=== PATIENT | female | born 1945 | race Caucasian/White ===

== ENCOUNTER 2019-06-09 14:41 | Outpatient (CLI) | payer MEDICARE, MEDICAID, SELFPAY ==
[2019-06-09 15:30] LABS: Basophils % 0.3 %; Eosinophils # 0.1 10^3/uL (0.0-0.8); Hematocrit 40.1 % (37.0-47.0); Hemoglobin 13.1 g/dL (11.5-15.3); Lymphocytes # 3.7 10^3/uL (0.8-4.8); Lymphocytes % 37.5 %; Mean Corpuscular HGB Conc 32.7 g/dL (30.0-36.0); Mean Corpuscular Hemoglobin 31.7 pg (28.0-34.0); Mean Corpuscular Volume 97.1 fL (81-99); Mean Platelet Volume 10.3 fL (7.4-10.4); Monocytes # 0.9 10^3/uL (0.2-0.9); Monocytes % 8.7 %; Neutrophils # 5.2 10^3/uL (1.8-7.7); Neutrophils % 52.4 %; Nucleated Red Blood Cells % 0 %; Platelet Count 236 10^3/cmm (130-400); Red Blood Count 4.13 10^6/uL (4.1-5.3); Red Cell Distribution Width 12.3 % (12.1-15.1); White Blood Count 9.8 10^3/uL (4.0-10.0)
[2019-06-09 15:53] LABS: Creatinine Urine, Random 294 mg/dL (28-217); Microalbum Creatinine Ratio Ur 10 mg/dL (0-20); Microalbumin Random Urine 3 ug/dL (0-20)
[2019-06-09 16:45] LABS: Calcium 11.1 mg/dL (8.5-10.5); Parathyroid Hormone 34.3 pg/mL (15-65)
[2019-06-09 22:30] LABS: Albumin Level 4.4 g/dL (3.5-5.2); Anion Gap 16.5 (5-19); Blood Urea Nitrogen 17 mg/dL (8-23); Calcium 11.2 mg/dL (8.5-10.5); Carbon Dioxide 28 mmol/L (22-29); Chloride 102 mmol/L (98-107); Chol HDL Ratio 4.32 mg/dL (0.0-4.40); Cholesterol 177 mg/dL (0-200); Glucose 91 mg/dL (65-115); HDL Cholesterol 41 mg/dL (60-100); LDL Cholesterol Calculated 90 mg/dL (50-129); Phosphorus 3.9 mg/dL (2.5-4.5); Potassium 4.5 mmol/L (3.5-5.1); Sodium 142 mmol/L (136-145); Triglycerides 229 mg/dL (0-150)
== END 2019-06-09 14:42 | disposition home or self-care (01) ==
LOC: LAB 14:51
PROVIDERS: Family Provider Physician Assistant Medical; PCP Nurse Practitioner Family; Visit Provider Internal Medicine Nephrology
DX: N18.3 Chronic kidney disease, stage 3 (moderate) (principal)
CPT/HCPCS: 36415; 80061; 80069; 82044; 82310; 83970; 85025

== ENCOUNTER 2019-07-02 14:56 | Outpatient (CLI) | payer MEDICARE, MEDICAID, SELFPAY ==
[2019-07-02 15:38] LABS: Anion Gap 15.9 (5-19); Blood Urea Nitrogen 14 mg/dL (8-23); Calcium 10.5 mg/dL (8.5-10.5); Carbon Dioxide 29 mmol/L (22-29); Chloride 101 mmol/L (98-107); Glucose 116 mg/dL (65-115); Osmolality Calculated 291 mOsm/kg (285-295); Potassium 3.9 mmol/L (3.5-5.1); Sodium 142 mmol/L (136-145)
[2019-07-08 20:26] LABS: PTH Related Peptide (Protein) 15 pg/mL (14-27)
== END 2019-07-02 14:57 | disposition home or self-care (01) ==
LOC: LAB 15:02
PROVIDERS: Family Provider Physician Assistant Medical; PCP Nurse Practitioner Family; Visit Provider Internal Medicine Nephrology
DX: E83.52 Hypercalcemia (principal)
CPT/HCPCS: 36415; 80048; 82542

== ENCOUNTER → 2022-07-11 11:42 | Outpatient (BNVA) | payer MEDICARE, MEDICAID, SELFPAY | PROVIDERS: Family Provider Physician Assistant Medical; Visit Provider Registered Nurse | DX: N18.32 Chronic kidney disease, stage 3b (principal) | CPT/HCPCS: 80048; 82043 ==

== ENCOUNTER 2024-06-02 06:00 | Outpatient (RCR) | payer MEDICARE, MEDICAID, SELFPAY | END 2024-06-27 23:59 | disposition home or self-care (01) | LOC: APT 06:00 | PROVIDERS: Visit Provider Nurse Practitioner Family | DX: I50.9 Heart failure, unspecified (principal) | CPT/HCPCS: 97110; 97163 ==

== ENCOUNTER 2024-06-28 06:00 | Outpatient (RCR) | payer MEDICARE, MEDICAID, SELFPAY | END 2024-07-28 23:59 | disposition home or self-care (01) | LOC: APT 06:00 | PROVIDERS: Visit Provider Nurse Practitioner Family | DX: I50.9 Heart failure, unspecified (principal) | CPT/HCPCS: 97110 ==

== ENCOUNTER 2024-07-29 06:00 | Outpatient (RCR) | payer MEDICARE, MEDICAID, SELFPAY | END 2024-08-27 23:59 | disposition home or self-care (01) | LOC: APT 06:00 | PROVIDERS: Visit Provider Nurse Practitioner Family | DX: I50.9 Heart failure, unspecified (principal) | CPT/HCPCS: 97110; 97112; 97530 ==

== ENCOUNTER 2024-08-28 05:00 | Outpatient (RCR) | payer MEDICARE, MEDICAID, SELFPAY | END 2024-09-27 23:59 | disposition home or self-care (01) | LOC: APT 05:00 | PROVIDERS: Visit Provider Nurse Practitioner Family | DX: I50.9 Heart failure, unspecified (principal) | CPT/HCPCS: 97110; 97530 ==

== ENCOUNTER 2024-11-21 10:16 | Outpatient (CLI) | payer MEDICARE, MEDICAID, SELFPAY ==
--- NOTE | 2024-11-21 10:25 | PETR_ITS ---
PROCEDURE INFORMATION: Exam: PET/CT Skull Base to Mid-thigh Exam date and time: 11/21/2024 11:36 AM Age: 79 years old Clinical indication: Condition or disease; Condition/disease: Lower lobe pulmonary nodule; Additional info: Abnormal imaging LABS AND CLINICAL REPORTS: Glucose: 99 mg/dl Treatment strategy for malignancy (PET staging): Initial Staging (PI) TECHNIQUE: Imaging protocol: Following at least four-hour fasting and following the injection of radiopharmaceutical, low dose CT images were obtained. Then, PET images were obtained. Attenuation corrected images were constructed using the CT scan. Fused images of PET and CT were reviewed. The standardized uptake values (SUV) reported below are maximum values within a region of interest, expressed in gm/ml. Exam includes orbital meatal line to mid-thigh. SUV normalization method: BodyWeight Radiopharmaceutical: 12.17 mCi F-18 FDG (Fluorodeoxyglucose), IV. Time of imaging post radiopharmaceutical administration: 47 minutes Injection site: LEFT AC COMPARISON: CR XR ribs LT mn 3V w CXR1V [id number] 01/16/2022 3:53 PM FINDINGS: Brain: On the nondedicated limited brain images there is no abnormal distribution of the radiotracer in the bowers and white matter. Pharynx: Normal distribution of the radiotracer in nasopharyngeal, and oropharyngeal structures. Larynx: Normal distribution of the radiotracer in laryngeal structures. Lungs, pleura and trachea: 8 mm left lower lobe nodule with uptake of 14.2 SUV is suggestive of malignancy. 5 x 3 mm left lower lobe nodule on series 202, image 108 with no abnormal uptake is likely benign. There is mild centrilobular emphysema most prominent in the upper lungs. No pleural effusion. Heart: Normal physiologic uptake. There is no cardiomegaly. Coronary artery calcification is present. There is no pericardial effusion. Mediastinal space: No abnormal uptake. Liver: Normal size without abnormal radiotracer uptake. Gallbladder and biliary ducts: No abnormal uptake. Pancreas: Normal distribution of radiotracer. Spleen: Normal size without abnormal radiotracer uptake. Adrenal glands: No abnormal uptake. Kidneys and ureters: Normal physiologic uptake. No hydronephrosis. A couple of simple cysts in the right kidney measuring up to 2 cm. Stomach and bowel: Long segment of increased uptake in the right and transverse colon with no corresponding CT abnormality is likely benign. There is diverticulosis of the sigmoid colon. Vasculature: No abnormal uptake. Descending thoracic aorta is dilated to 3.7 cm. No abnormal dilatation of the abdominal aorta. Lymph nodes: No abnormal uptake. No lymphadenopathy in the head, neck, chest, abdomen, pelvis, and extremities. Skeleton: No abnormal uptake in the visualized axial and appendicular skeleton. Soft tissues: Linear uptake extending from the left antecubital fossa toward the left axilla represents lymphatic drainage of extravasated FDG at the junction site. Increased muscular uptake in the scalene muscles more prominent on the left side is compatible with benign finding. PET/PET skull to thigh INIT [id number] IMPRESSION: 8 mm left lower lobe lung nodule with intense uptake of 14.2 SUV is suggestive of malignancy. No FDG avid lymph nodes in the chest. No evidence of distant FDG avid metastatic disease.
== END 2024-11-21 10:17 | disposition home or self-care (01) ==
LOC: RAD 10:16
PROVIDERS: Visit Provider Nurse Practitioner Family
DX: R91.1 Solitary pulmonary nodule (principal); J43.1 Panlobular emphysema
CPT/HCPCS: 78815; A9552

== ENCOUNTER 2025-03-22 00:11 | Emergency (ER) | payer MEDICARE, MEDICAID, SELFPAY ==
--- OUTSIDE RECORDS SUMMARY | 2025-03-19 13:20 | XMS_ITS | Encounter Summary ---
Author Organization [facility] Address [address] [place] [address] Care Team Providers Care Feather Separator Name Role Phone Gary Guardado MD Primary Care Provider [phone] [phone] Reason for Visit * Reason Onset Date Comments Hip Pain Right side for a bout a month Leg Pain Right side for a bout a month Yearly Medicare Exam Annual Wellness Visit (Medicare) 03/19/2025 Yearly Medicare Exam 03/19/2025 Encounter Details Date Type Department Care Team (Late st Contact Info) Description 03/19/2025 1:20 PM INDIRECT SALES REPRESENTATIVE Office Visit [facility] Family Medicine [address] [phone] Melani Freedman FNP [address] [place] [phone] Chronic congestive heart failure, unspecified heart failure type (CMS/HCC) (Primary Dx); Sciatica of right side; Chronic obstructive pulmonary disease, unspecified COPD type (CMS/HCC) Social History Tobacco Use Types Packs/Day Years Used Date Smoking Tobacco: Every Day Cigarettes 2 65.1 Started: 01/30/1960 Smokeless Tobacco: Never Tobacco Cessation:Ready to Q uit: No; Counseling Given: Yes Alcohol Use Standard Drinks/Week Comments No 0 (1 standard drink = 0.6 oz pur e alcohol) Financial Resource Strain Answer Date R ecorded How hard is it for you to pa y for the very basics like food, housing, medical care, and heating? Not hard at all 04/20/2022 Food Insecurity Answer Date Recorded In the past 12 months, have you worried that your food would run out before you had money to buy more? Never true 04/20/2022 In the past 12 months, did y ou run out of food and didn't have money to buy more? Never true 04/20/2022 Transportation Needs Answer Date Record ed In the past 12 months, has l ack of transportation kept you from medical appointments or from getting medications? No 04/20/2022 Lack of Transportation (Non-Medical) Not on file 04/20/2022 Feeling Safe Answer Date Recorded Are you in a relationship wi th someone who hurts you emotionally and/or physically? No 12/31/2024 Food Insecurity Answer Date Recorded Patient needs follow up regardin 08/20/2024 Transportation Needs Answer Date Record ed Patient needs follow up regardin 08/20/2024 Housing Stability Answer Date Recorded Social/Environmental Concerns No concerns Utility Needs Answer Date Recorded Patient needs follow up regardin 08/20/2024 Education Answer Date Recorded What is the highest level of school you have completed or the highest degree you have received? 6th grade 01/28/2024 Comments No Sex and Gender Information Value Date Recorded Sex Assigned at Not on file Legal Sex Female 2:49 PM INDIRECT SALES REPRESENTATIVE Gender Identity Not on file Sexual Orientation Not on file documented as of this encounter Last Filed Vital Signs Vital Sign Reading Time Taken Comments Blood Pressure 128/68 03/19/2025 1:31 PM INDIRECT SALES REPRESENTATIVE Pulse 69 03/19/2025 1:31 PM INDIRECT SALES REPRESENTATIVE Temperature 36.8 C (98.2 F) 03/19/2025 1:31 PM INDIRECT SALES REPRESENTATIVE Respiratory Rate 20 03/19/2025 1:31 PM INDIRECT SALES REPRESENTATIVE Oxygen Saturation 98% 03/19/2025 1:31 PM INDIRECT SALES REPRESENTATIVE Inhaled Oxygen Concentration - - Weight 63.1 kg (139 lb 3.2 oz) 03/19/2025 1:31 P M INDIRECT SALES REPRESENTATIVE Height 149.9 cm (4' 11 ) 03/19/2025 1:31 PM INDIRECT SALES REPRESENTATIVE Body Mass Index 28.11 03/19/2025 1:31 PM INDIRECT SALES REPRESENTATIVE documented in this encounter Miscellaneous Notes * Patient Instructions - Bhupendra Main LPN - 03/19/2025 1:32 PM INDIRECT SALES REPRESENTATIVE Preventive Care Recommendations for AVERAGE Risk Adult Females > 65yo Measure USPSTF Recommendation Breast cancer screening (mammogram) Every 1 to 2 years for women >40 Osteoporosis Screening (bone density) Women >65 Colon Cancer Screening Colonoscopy every 10 yrs or Fecal Occult Blood testing yearly ages 45-75 Lung Cancer Screening Annual low-dose CT, adults 50 - 80* w/ >20 pack-year smoking hx who currently smoke or have quit w/in 15 yrs (*Medicare will not cover for >77 yo) Lipid Screening Identification of dyslipidemia and calculation of 10-year CVD event risk requires universal lipid screening in adults ages 40 - 75 Pre-diabetes/Diabetes Screening Adults 35-70 who are overweight or obese Hepatitis C Screening Adults 18-79 Immunizations COVID-19 Influenza Pneumococcal RSV Tdap/Td Zoster (Shingles) RECT SALES REPRESENTATIVE documented in this encounter Plan of Treatment Upcoming Encounters Date Type Department Care Team (Late st Contact Info) Description 07/23/2025 2:00 PM CDT Office Visit [address] [phone] Gary Guardado MD [address] [phone] documented as of this encounter Visit Diagnoses Diagnosis Chronic congestive heart failure, unspecified heart failure type (CMS/HCC)- Primary Sciatica of right side Sciatica Chronic obstructive pulmonary disease, unspecified COPD type (CMS/HCC) documented in this encounter Administered Medications Inactive Administered Medications - up to 3 most recent administrations Medication Order MAR Action Action Date Dose Rate Site dexAMETHasone (DECADRON) injection 4 mg 4 mg, IM, ONE TIME ONLY, 1 dose, On Mckenzie 03/19/25 at 1415, RoutineIndications:Sciat ica of right side Given 03/19/2025 2:31 PM INDIRECT SALES REPRESENTATIVE 4 mg Ventrogluteal, Right methylPREDNISolone acetate (DEPO-Medrol) injection 40 mg 40 mg, IM, ONE TIME ONLY, 1 dose, On Mckenzie 03/19/25 at 1415, RoutineIndications:Sciat ica of right side Given 03/19/2025 2:31 PM INDIRECT SALES REPRESENTATIVE 40 mg Ventrogluteal, Right documented in this encounter Care Teams Feather Separator Relationship Specialty Start Date End Date Gary Guardado MD [address] [phone] PCP - General Family Practice 12/26/16 documented as of this encounter
[2025-03-22 00:15] VITALS: BP 158/77; PULSE 55; RESP 17; O2SAT 95
--- OUTSIDE RECORDS SUMMARY | 2025-03-22 00:16 | XMS_ITS | Encounter Summary ---
Author Organization 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) Social History Tobacco Use Types Packs/Day Years Used Date Smoking Tobacco: Never Assessed Comments Unknown Sex and Gender Information Value Date Recorded Sex Assigned at Not on file Legal Sex Female 4:26 AM PLYWOOD MATCHER Gender Identity Not on file Sexual Orientation Not on file documented as of this encounter Plan of Treatment Not on file documented as of this encounter Visit Diagnoses Diagnosis Occlusion and stenosis of multiple and bilateral precerebral arteries without mention of cerebral infarction- Primary documented in this encounter Additional Health Concerns Infection Onset Date Last Indicated Resolved Time R/O COVID-19 08/18/2020 08/18/2020 08/18/2020 5:52 PM CDT documented as of this encounter Care Teams Planisher Relationship Specialty Start Date End Date Gary Guardado MD [address] [phone] PCP - General Family Practice 12/26/16 documented as of this encounter
--- OUTSIDE RECORDS SUMMARY | 2025-03-22 00:16 | XMS_ITS | Encounter Summary ---
Author Organization [facility] Address [address] [place] [address] Care Team Providers Care Manager Alliance Name Role Phone Gary Guardado MD Primary Care Provider [phone] [phone] Encounter Details Date Type Department Care Team (Latest Contact Info) Description 01/07/[address] [facility] [address] [place] [address] Francy Wade MD NO ADDRESS ON FILE Contusion Abdominal Wall (Primary Dx); Esophageal Reflux Social History Tobacco Use Types Packs/Day Years Used Date Smoking Tobacco: Never Assessed Comments Unknown Sex and Gender Information Value Date Recorded Sex Assigned at Not on file Legal Sex Female 4:26 AM BALE COVERER Gender Identity Not on file Sexual Orientation Not on file documented as of this encounter Plan of Treatment Not on file documented as of this encounter Visit Diagnoses Diagnosis Contusion abdominal wall- Primary Contusion of abdominal wall Esophageal reflux documented in this encounter Additional Health Concerns Infection Onset Date Last Indicated Resolved Time R/O COVID-19 08/18/2020 08/18/2020 08/18/2020 5:52 PM CDT documented as of this encounter Care Teams Manager Alliance Relationship Specialty Start Date End Date Gary Guardado MD [address] [facility] [address] [place] [phone] PCP - General Family Practice 12/26/16 documented as of this encounter
--- OUTSIDE RECORDS SUMMARY | 2025-03-22 00:16 | XMS_ITS | Encounter Summary ---
Author Organization [facility] Address [address] [place] [address] Care Team Providers Care Jewelry Estimator Name Role Phone Gary Guardado MD Primary Care Provider +1 [phone] Encounter Details Date Type Department Care Team (Latest Contact Info) Description 05/26/2003 Outpatient Historical [facility] [address] [place] [phone] Skinny Inman MD NO ADDRESS ON FILE CHEST PAIN NOS (Primary Dx) Social History Tobacco Use Types Packs/Day Years Used Date Smoking Tobacco: Never Assessed Comments Unknown Sex and Gender Information Value Date Recorded Sex Assigned at Not on file Legal Sex Female 4:26 AM FUNDRAISING DIRECTOR Gender Identity Not on file Sexual Orientation Not on file documented as of this encounter Plan of Treatment Not on file documented as of this encounter Visit Diagnoses Diagnosis Chest pain, unspecified- Primary documented in this encounter Additional Health Concerns Infection Onset Date Last Indicated Resolved Time R/O COVID-19 08/18/2020 08/18/2020 08/18/2020 5:52 PM CDT documented as of this encounter Care Teams Jewelry Estimator Relationship Specialty Start Date End Date Gary Guardado MD [address] [facility] [address] [place] [phone] PCP - General Family Practice 12/26/16 documented as of this encounter
--- OUTSIDE RECORDS SUMMARY | 2025-03-22 00:16 | XMS_ITS | Encounter Summary ---
Author Organization [facility] Address [address] [place] [address] Care Team Providers Care Asp Net Software Developer Name Role Phone Gary Guardado MD Primary Care Provider [phone] [phone] Encounter Details Date Type Department Care Team (Latest Contact Info) Description 06/02/2005 Outpatient Historical [facility] Family Medicine- [address] [place] [address] Francy Wade MD NO ADDRESS ON FILE ALLERGIC RHINITIS NOS (Primary Dx) Social History Tobacco Use Types Packs/Day Years Used Date Smoking Tobacco: Never Assessed Comments Unknown Sex and Gender Information Value Date Recorded Sex Assigned at Not on file Legal Sex Female 4:26 AM MEN'S 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 Gender Identity Not on file Sexual Orientation Not on file documented as of this encounter Plan of Treatment Not on file documented as of this encounter Visit Diagnoses Diagnosis Allergic rhinitis, cause unspecified- Primary documented in this encounter Additional Health Concerns Infection Onset Date Last Indicated Resolved Time R/O COVID-19 08/18/2020 08/18/2020 08/18/2020 5:52 PM CDT documented as of this encounter Care Teams Asp Net Software Developer Relationship Specialty Start Date End Date Gary Guardado MD [address] [phone] PCP - General Family Practice 12/26/16 documented as of this encounter
--- OUTSIDE RECORDS SUMMARY | 2025-03-22 00:16 | XMS_ITS | Encounter Summary ---
Author Organization [facility] Address [address] [place] [address] Care Team Providers Care Insulation Applicator Name Role Phone Gary Guardado MD Primary Care Provider [phone] [phone] Encounter Details Date Type Department Care Team (Latest Contact Info) Description 02/26/2002 Outpatient Historical [facility] Family Medicine [address] [phone] Francy Wade MD NO ADDRESS ON FILE ANXIETY STATE NOS (Primary Dx) Social History Tobacco Use Types Packs/Day Years Used Date Smoking Tobacco: Never Assessed Comments Unknown Sex and Gender Information Value Date Recorded Sex Assigned at Not on file Legal Sex Female 4:26 AM BARTENDERS Gender Identity Not on file Sexual Orientation Not on file documented as of this encounter Plan of Treatment Not on file documented as of this encounter Visit Diagnoses Diagnosis Anxiety state, unspecified- Primary documented in this encounter Additional Health Concerns Infection Onset Date Last Indicated Resolved Time R/O COVID-19 08/18/2020 08/18/2020 08/18/2020 5:52 PM CDT documented as of this encounter Care Teams Insulation Applicator Relationship Specialty Start Date End Date Gary Guardado MD [address] [phone] PCP - General Family Practice 12/26/16 documented as of this encounter
--- OUTSIDE RECORDS SUMMARY | 2025-03-22 00:16 | XMS_ITS | Clinical Summary ---
Author Organization [facility] Address [address] [place] [address] Care Team Providers Care Religion Teacher Name Role Phone Gary Guardado MD Primary Care Provider [phone] Allergies Active Allergy Reactions Criticality Noted Date Comments Cephalexin Rash,Itching Low 11/02/2014 Minocycline Rash Medium 02/07/2008 Nirmatrelvir-Ritonavir Other (See Comments) Caused tongue to become red and very sore with 1 dose Penicillins Rash Low 02/07/2008 Medications multivit-min/ir on/folic/lutein (CENTRUM SILVER WOMEN ORAL) Take by mouth daily. 04/11/20 18 Active overnight pulse oximetryIndicat ions:Panlobular emphysema (CMS/HCC) Overnight pulse oximetry: One time overnight pulse oximetry test on room air 1 Each 0 07/10/19 21 Active multivitamin (DAILY-MELANIA) tablet Take 1 Tablet by mouth daily. 10/23/19 21 Active ibuprofen (MOTRIN) 200 mg tablet Take 200 mg by mouth every 6 hours as needed for Pain, Mild. Active walker with wheels and seatIndications :Panlobular emphysema (CMS/HCC),Conge stive heart failure, unspecified HF chronicity, unspecified heart failure type (CMS/HCC),PAD (peripheral artery disease),Supple mental oxygen dependent,Histo ry of fall Face to Face completed within 6 months: yesLength of Need: 99 months. 1 Each 0 08/23/19 18 Active bumetanide (BUMEX) 0.5 mg tablet Take 0.5 mg by mouth daily. Active ipratropium-alb uteroL (DUONEB) 0.5 mg-3 mg(2.5 mg base)/3 mL Solution for NebulizationInd ications:Panlob ular emphysema (CMS/HCC) Take 3 mL by inhalation every 6 hours as needed for Shortness of Breath or Wheezing. 180 mL 2 02/05/20 24 Active clopidogreL (PLAVIX) 75 mg Tablet TAKE ONE TABLET BY MOUTH DAILY 100 Tablet 3 04/07/20 24 Active aspirin (HAYLEY CHEWABLE) 81 mg Tablet, Chewable Take 81 mg by mouth daily. Active ondansetron (ZOFRAN ODT) 4 mg Tablet, Rapid DissolveIndicat ions:Nausea and vomiting, unspecified vomiting type Take 1 Tablet (4 mg) by mouth every 8 hours as needed for Nausea/Emesis. Dissolve tablet on top of tongue, then swallow with saliva. 90 Tablet 1 04/24/20 24 Active ketoconazole (NIZORAL) 2 % CreamIndication s:Rash APPLY TO THE AFFECTED AREA(S) DAILY 60 Gram 1 07/11/19 25 Active triamcinolone acetonide (KENALOG) 0.1 % OintmentIndicat ions:Eczema of left external ear Apply to affected area 2 times daily. Apply small amount to entrance of left ear canal for itching 30 Gram 1 07/19/19 25 Active lovastatin (MEVACOR) 20 mg tabletIndicatio ns:Mixed hyperlipidemia, Chronic diastolic congestive heart failure (CMS/HCC) Take 1 Tablet (20 mg) by mouth daily with supper. 100 Tablet 3 07/19/19 25 Active montelukast (SINGULAIR) 10 mg tablet TAKE ONE TABLET BY MOUTH EVERY DAY AT BEDTIME 100 Tablet 3 08/08/19 25 Active docusate sodium (COLACE) 100 mg capsuleIndicati ons:Constipatio n, unspecified constipation type TAKE ONE CAPSULE BY MOUTH TWICE DAILY 200 Capsule 3 09/04/19 25 Active guaiFENesin (Mucinex) Tablet Extended Release 12hr Take 1,200 mg by mouth daily. Active vit C-vit E-aoerdj-ektx OXIDE-lutein (PRESERVISION) 226-90-0.8-5 mg Capsule Take 1 Capsule by mouth 2 times daily. Active cetirizine (ZyrTEC) 10 mg tablet TAKE ONE TABLET BY MOUTH DAILY 100 Tablet 3 11/13/19 25 Active potassium CHLORIDE (K-DUR,KLOR-CON M20) 20 mEq Extended Release tablet Take 1 Tablet (20 mEq) by mouth daily. 90 Tablet 3 11/22/19 25 Active fluticasone furoate-vilante roL (Breo Ellipta) 200-25 mcg/dose Disk with Device INHALE 1 PUFF INTO LUNGS DAILY 60 Each 2 11/28/19 25 Active citalopram (CeleXA) 20 mg tabletIndicatio ns:Recurrent major depressive disorder, in partial remission TAKE ONE TABLET BY MOUTH EVERY DAY AT BEDTIME 100 Tablet 2 12/17/19 25 Active isosorbide mononitrate (IMDUR) 30 mg Extended Release 24 hour tabletIndicatio ns:Chronic congestive heart failure, unspecified heart failure type (CMS/HCC) TAKE ONE TABLET BY MOUTH EVERY DAY, EARLY IN THE MORNING 100 Tablet 2 12/17/19 25 Active albuterol sulfate HFA 90 mcg/actuation aerosol inhaler Take 2 Puffs by inhalation every 4 hours as needed for Shortness of Breath. 8.5 Gram 3 12/21/19 25 Active clonazePAM (KlonoPIN) 0.5 mg TabletIndicatio ns:Orthostatic tremor,NORMA (generalized anxiety disorder) TAKE ONE TABLET BY MOUTH DAILY AT BEDTIME 30 Tablet 5 01/07/20 25 Active oxygen home deliveryIndicat ions:Panlobular emphysema (CMS/HCC) Home Oxygen Concentrator yes at 2 L/M Rest, 2 L/M Activity, 2 L/M Sleep, Delivery Device: Nasal Cannula Portability: yes, Inogen May provide device best for patient needs(E system,home fill, conserving device) Length of Need: 99 months 1 Each 01/20/20 25 Active metoprolol tartrate (LOPRESSOR) 25 mg tabletIndicatio ns:Essential hypertension,Ch ronic congestive heart failure, unspecified heart failure type (CMS/HCC) Take 0.5 Tablets (12.5 mg) by mouth 2 times daily. Dose decrease 100 Tablet 3 01/23/20 25 Active latanoprost (XALATAN) 0.005 % solution ADMINISTER ONE DROP IN BOTH EYES DAILY AT BEDTIME 2.5 mL 1 02/05/20 Active pantoprazole (PROTONIX) 40 mg Tablet, Delayed Release (E.C.) TAKE ONE TABLET BY MOUTH DAILY 100 Tablet 2 03/18/20 Active acetaminophen (TYLENOL) 325 mg tablet Take 325 mg by mouth every 6 hours as needed for Pain. Active dapagliflozin propanediol (FARXIGA) 5 mg TabletIndicatio ns:Chronic congestive heart failure, unspecified heart failure type (CMS/HCC) Take 1 Tablet (5 mg) by mouth daily. 100 Tablet 1 03/19/20 25 Active doxycycline hyclate (VIBRAMYCIN) 100 mg tabletIndicatio ns:Chronic obstructive pulmonary disease, unspecified COPD type (CMS/HCC) Take 1 Tablet (100 mg) by mouth 2 times daily. For 5 days - follow COPD Rescue Kit instructions 10 Tablet 1 03/19/20 25 Active predniSONE (DELTASONE) 20 mg tabletIndicatio ns:Chronic obstructive pulmonary disease, unspecified COPD type (CMS/HCC) Take 2 Tablets (40 mg) by mouth daily with breakfast. For 5 days - follow COPD Rescue Kit instructions 10 Tablet 3 03/19/20 Active pantoprazole (Protonix) 40 mg Tablet, Delayed Release (E.C.) Take 1 Tablet (40 mg) by mouth daily. 90 Tablet 1 10/22/192024 Discontinued Hospital, Clinic, or Other Facility Administered Medication Ordered Dose Route Frequency Start Date End Date Status dexAMETHasone (DECADRON) injection 4 mgIndications:Sciatica of right side 4 mg IM ONE TIME ONLY 03/19/2025 03/19/2025 Ended methylPREDNISolone acetate (DEPO-Medrol) injection 40 mgIndications:Sciatica of right side 40 mg IM ONE TIME ONLY 03/19/2025 03/19/2025 Ended Active Problems Problem Noted Date Diagnosed Date Left lower lobe pulmonary nodule 12/20/2024 Current every day smoker 12/20/2024 Cervical myelopathy 07/02/2023 Chronic respiratory failure 07/02/2023 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 Congestive heart failure 07/13/2021 Orthostatic tremor 05/27/2020 Cervical spondylosis with myelopathy 05/27/2020 Hypercalcemia 06/05/2018 On home oxygen therapy 08/22/2017 Asymptomatic bilateral carotid artery stenosis 1 Tobacco use 02/02/2015 Stage 3b chronic kidney disease 11/29/2012 PAD (peripheral artery disease) 07/09/2012 Intertrigo 02/25/2011 GERD (gastroesophageal reflux disease) 1 Sinus bradycardia 03/04/2010 History of CVA (cerebrovascular accident) 2009 Personal history of carotid stenosis 06/14/2009 Hyperlipidemia 05/22/2008 NORMA (generalized anxiety disorder) 05/22/2008 COPD (chronic obstructive pulmonary disease) Essential hypertension 02/07/2008 Chronic diastolic congestive heart failure Resolved Problems Problem Noted Date Diagnosed Date Resolved Date Pneumonia of both lungs due to infectious organism 01/28/2024 07/18/2024 Facial trauma, initial encounter 01/25/2022 07/18/2024 Closed fracture of right luba e of maxilla with routine healing 01/25/2022 07/18/2024 Closed fracture of right orb ital floor with routine healing 01/25/2022 07/18/2024 Chest pain 03/04/2010 11/16/2013 Vertigo 11/12/2009 10/21/2014 Encounters Date Type Department Care Team Description 03/19/2025 1:20 PM HEAD SCORER Office Visit [facility] [address] [place] [address] [place] [address] Melani Freedman FNP Chronic congestive heart failure, unspecified heart failure type (CMS/HCC) (Primary Dx); Sciatica of right side; Chronic obstructive pulmonary disease, unspecified COPD type (CMS/HCC) 03/18/[address] [phone] Gary Guardado MD 03/05/2025 Abstract [facility] [address] [place] [address] [place] [address] Provider, Abstract 03/04/2025 Abstract [facility] [address] [place] [address] [place] [address] Provider, Abstract 02/04/[address] [place] [phone] Gary Guardado MD Provider Call 02/04/[address] [phone] Gary Guardado MD 01/22/2025 2:00 PM CDT Office Visit [address] [phone] Gary Guardado MD Chronic congestive heart failure, unspecified heart failure type ([facility]/HCC) (Primary Dx); Essential hypertension 01/19/2025 Orders Only [facility] [address] [place] [address] [place] [phone] Melani Freedman FNP Panlobular emphysema ([facility]/HCC) 01/09/2025 Orders Only [facility] [address] [place] [address] [place] [phone] Melani Freedman FNP 01/08/2025 Orders Only [facility] [address] [place] [address] [place] [address] Melani Freedman FNP 01/07/[address] [phone] Gary Guardado MD Provider Call 01/06/2025 External Device Data [facility] ABSTRACTION Provider, Abstract 01/06/2025 Results Follow-Up [facility] [address] [place] [address] Katelyn John NP CYTOLOGY, NON GYNE, PATHOLOGY 01/05/[address] [phone] Gary Guardado MD Orthostatic tremor; NORMA (generalized anxiety disorder) 01/05/2025 Telephone [place] [phone] [facility] [address] [facility] [place] [phone] Melani Freedman FNP New Med Request 01/05/2025 Telephone [facility] [address] [facility] [address] [facility] [place] [phone] Melani Freedman FNP Results 01/01/2025 Telephone [facility] [address] [facility] [address] [place] [phone] Gary Guardado MD Patient Communication 12/31/2024 1:29 PM CDT Anesthesia Event [facility] [address] [place] [phone] Usama Au MD 12/31/2024 11:45 AM CDT - 12/31/2024 1:00 PM CDT Surgery [facility] [address] [place] [phone] Mckenzie Schwartz MD BRONCHOSCOPY 12/31/2024 9:52 AM CDT - 12/31/2024 3:33 PM CDT Hospital Encounter [facility] [address] [place] [phone] Mckenzie Schwartz MD Left lower lobe pulmonary nodule Discharge Disposition: Home or Self Care 12/26/2024 Travel 12/25/2024 Orders Only [facility] [address] [place] [phone] Mckenzie Schwartz MD Left lower lobe pulmonary nodule (Primary Dx); Pre-op testing 12/25/2024 Telephone [facility] [address] [phone] Mckenzie Schwartz MD Procedure 12/20/2024 10:30 AM CDT Video Visit [facility] [address] [place] [phone] Karthikeyan Vanessa MD Multiple pulmonary nodules (Primary Dx); Current every day smoker; Panlobular emphysema (CMS/HCC); On home oxygen therapy from Last 3 Months Family History Medical History Relation Name Comments Diabetes Brother 1 Cancer Father Diabetes Father Unknown Maternal Grandfather Unknown Maternal Grandmother Stroke Mother Diabetes Other uncles Unknown Paternal Grandfather Unknown Paternal Grandmother Breast Cancer Neg Hx Colon Cancer Neg Hx Relation Name Status Comments Brother 1 Alive Brother 2 Father Maternal Grandfather Maternal Grandmother Mother Other Paternal Grandfather Paternal Grandmother Sister Social History Tobacco Use Types Packs/Day Years [...] on file Legal Sex Female 2:49 PM HEAD SCORER Gender Identity Not on file Sexual Orientation Not on file Last Filed Vital Signs Vital Sign Reading Time Taken Comments Blood Pressure 128/68 03/19/2025 1:31 PM HEAD SCORER Pulse 69 03/19/2025 1:31 PM HEAD SCORER Temperature 36.8 C (98.2 F) 03/19/2025 1:31 PM HEAD SCORER Respiratory Rate 20 03/19/2025 1:31 PM HEAD SCORER Oxygen Saturation 98% 03/19/2025 1:31 PM HEAD SCORER Inhaled Oxygen Concentration - - Weight 63.1 kg (139 lb 3.2 oz) 03/19/2025 1:31 P M HEAD SCORER Height 149.9 cm (4' 11 ) 03/19/2025 1:31 PM HEAD SCORER Body Mass Index 28.11 03/19/2025 1:31 PM HEAD SCORER Plan of Treatment Upcoming Encounters Date Type Department Care Team (Late st Contact Info) Description 07/23/2025 2:00 PM CDT Office Visit [address] [phone] Gary Guardado MD [address] [phone] Health Maintenance Due Date Last Done Comments DTAP/TDAP/TD VACCINES (1 - Tdap) 1964 PNEUMOCOCCAL VACCINE 50+ YEA RS (1 of 2 - PCV) 1964 Lung Cancer Screening 08/28/1995 ZOSTER VACCINE (1 of 2) 08/28/1995 RSV VACCINE (60+ or ) (1 - 1-dose 75+ series) 2020 OSTEOPOROSIS SCREENING 06/24/2023 06/24/2018, 2018 Medicare [place] ([place]) Preventative Visit/Annual Wellness Visit 04/30/2024 10/24/2023, 10/24/2022, 04/20/2022, Additional history exists INFLUENZA VACCINE (#1) 2024 , 01/16/2022, 01/05/2021, Additional history exists Colorectal Cancer Screening Discontinued FIT-DNA Q 3 years Discontinued 01/16/2021 COLORECTAL SCREENING Discontinued FIT/FOBT Q 1 year Discontinued Flex Sig/CT Colonography Q 5 years Discontinued Medical Devices Implanted Type Area Residential Director Device Identifier Shelf Expiration Date Model / Serial / Lot Lens Io Bi-Aspheric Softechd+21.25 - [id number] Implanted:Qty: 1 on 11/11/2014 by Gonzalo Manzano MD Eye Right: Eye [employer] 04/13/2018 SOFTECHD+21 .25 / [id number] / Procedures Procedure Name Priority Date/Time Associated Diagnosis Comments TELEMETRY REPORT 01/01/2025 9:26 AM CDT XR CHEST PA OR AP 1 VW Stat 2:44 PM CDT XR FLUORO LESS THAN 1 HOUR Routine 12/31/2024 2:29 PM CDT CYTOLOGY, NON GYNE Pathology 12/31/2024 2: 13 PM CDT Left lower lobe pulmonary nodule PATHOLOGY Pathology 12/31/2024 2:04 PM CDT Left lower lobe pulmonary nodule CA ANES INSERT ENDOTRACHEAL AIRWAY Routine 12/31/2024 1:41 PM CDT CA BRONCHOSCOPY W/CPTR-ASST IMAGE-GUIDED NAVIGATION 12/31/2024 11:45 AM CDT Left lower lobe pulmonary nodule CA BRONCHOSCOPY BRONCHIAL/ENDOBRNCL BX 1+ SITES 12/31/2024 11:45 AM CDT Left lower lobe pulmonary nodule COMPREHENSIVE METABOLIC PANEL Stat 12/31/2024 11:19 AM CDT CBC WITH DIFFERENTIAL Stat 12/31/2024 11:19 AM CDT COLON CANCER SCREEN, STOOL DNA Routine 01/16/2021 1:57 PM CDT Encounter for colorectal cancer screening XR DEXA BONE DENSITY AXIAL 1 OR MORE SITES Routine 06/24/2018 2:33 PM HEAD SCORER Postmenopausal from Last 3 Months or Most Recently Relevant to Health Maintenance Results * TELEMETRY REPORT (01/01/2025 9:26 AM CDT) us Provider Scanning ECG ORDERABLES Final Result * XR CHEST PA OR AP 1 VW (12/31/2024 2:44 PM CDT) Anatomical Region Laterality Modality Chest Computed Radiogr aphy 12/31/2024 2:44 PM CDT Impressions 12/31/2024 3:21 PM CDT IMPRESSION: Please see below. EXAM: XR CHEST PA OR AP 1 VW DATE/TIME OF EXAM: 12/31/2024 2:44 PM REASON FOR STUDY: Post-Operative, Comment: Robotic bronch DIAGNOSIS: Left lower lobe pulmonary nodule COMPARISON: September 03, 2024 TECHNIQUE: A frontal radiograph of the chest was obtained. FINDINGS: New left perihilar opacities. Cardiac silhouette is upper limit of normal. No acute bony abnormality. No pleural effusion or pneumothorax. Aortic atherosclerosis. IMPRESSION: 1. Left perihilar opacities are new from the prior radiograph of August. It is uncertain whether these correspond with the pulmonary nodule seen on the more recent chest CT of October 28, 2024. No evidence of pneumothorax. Narrative Procedure Note Charli Gilbert MD - 12/31/2024 IMPRESSION: Please see below. EXAM: XR CHEST PA OR AP 1 VW DATE/TIME OF EXAM: 12/31/2024 2:44 PM REASON FOR STUDY: Post-Operative, Comment: Robotic bronch DIAGNOSIS: Left lower lobe pulmonary nodule COMPARISON: September 03, 2024 TECHNIQUE: A frontal radiograph of the chest was obtained. FINDINGS: New left perihilar opacities. Cardiac silhouette is upper limit of normal. No acute bony abnormality. No pleural effusion or pneumothorax. Aortic atherosclerosis. IMPRESSION: 1. Left perihilar opacities are new from the prior radiograph of August. It is uncertain whether these correspond with the pulmonary nodule seen on the more recent chest CT of October 28, 2024. No evidence of pneumothorax. Mckenzie Schwartz MD DIAGNOSTIC IMAGING ORDERABLES Fi nal Result * XR FLUORO LESS THAN 1 HOUR (12/31/2024 2:29 PM CDT) Narrative 12/31/2024 2:29 PM CDT Order information only. Exam was auto-finalized. Mckenzie Schwartz MD DIAGNOSTIC IMAGING ORDERABLES Fi nal Result * CYTOLOGY, NON GYNE (12/31/2024 2:13 PM CDT) CASE REPORT Medical Cytology Report Case: [id number] Authorizing Provider: Mckenzie Schwartz MD Collected: 12/31/2024 02:13 PM Ordering Location: [facility] Received: 01/01/2025 07:06 AM Endoscopy Pathologist: Shakira Rhodes MD Specimen: Lung, left lower lobe nodule 10:21 AM CDT [facility] FINAL DIAGNOSIS A. Lung, left lower lobe, BAL, ThinPrep and cell block - No malignant cells identified - Benign bronchial epithelial cells present Shakira Rhodes MD [id number] 10:21 AM CDT [facility] at 1020 CDT GROSS DESCRIPTION A. Left lower lobe nodule fluid - 7.5 ml bloody fluid processed for ThinPrep and cell block A2. 10:21 AM CDT [facility] OPERATIVE PROCEDURE 1: BRONCHOSCOPY 2: BRONCHOSCOPY COMPUTER-ASSISTED/ROBO TIC 10:21 AM CDT [facility] CLINICAL INFORMATION Left lower lobe pulmonary nodule [R91.1] 10:21 AM CDT [facility] COMMENT [employer] voice-activated dictation system may have been used in the creation of this report. Inherent to this system is the possibility of errors in syntax, grammar, punctuation, or other areas that could impact interpretation. If there are interpretive questions about the report, please contact the performing pathologist. Unless gross only is specified in the diagnosis, the microscopic examination substantiates the above cited diagnosis. The performance characteristics of all immunohistochemical stains cited in this report (if any) were determined by the [facility] of [facility] in compliance with CLIA'88 regulations. Some of these tests rely on the use of analyte specific reagents and are subject to specific labeling requirements by the FDA. All controls show appropriate reactivity. This testing was developed by the [facility] of [facility]. It has not been cleared or approved by the FDA. The FDA has determined that such clearance or approval is not necessary. 10:21 AM CDT [facility] BAL SPECIMEN FROM LUNG / Unknown Collection / Unknown 12/31/2024 2:13 PM CDT 01/01/2025 7:06 AM CDT us Mckenzie Schwartz MD PATHOLOGY/CYTOLOGY ORDERABLES Fi nal Result [facility] [id number] [address] [place] [address] * PATHOLOGY (12/31/2024 2:04 PM CDT) CASE REPORT Surgical Pathology Report Case: [id number] Authorizing Provider: Mckenzie Schwartz MD Collected: 12/31/2024 02:04 PM Ordering Location: [facility] Received: 12/31/2024 03:22 PM Endoscopy Pathologist: Usama Ambrosio MD Specimens: A) - Lung, left lower lobe, nodule B) - Lung, left lower lobe, nodule 7:50 AM CDT [facility] FINAL DIAGNOSIS A. Lung, left lower lobe nodule, transbronchial needle aspiration biopsy - blood and rare nest of atypical squamous epithelium - no intact lung tissue present. / B. Lung, left lower lobe nodule, transbronchial biopsy - blood, scant lymphoid tissue, and rare atypical squamous epithelium - no intact lung tissue present. REV:CMM Usama Ambrosio MD [id number] 7:50 AM CDT [facility] at 0749 CDT DIAGNOSIS COMMENT After review of the H&E stained slide(s) immunostains on blocks A1 and B1 confirmed that the small atypical cell nests were positive for AE1/AE3 and p40, consistent with squamous epithelium. They were negative for synaptophysin and TTF-1. These cells are atypical but are not diagnostic of malignancy. 5 7:50 AM CDT [facility] GROSS DESCRIPTION A. Received in a container of formalin labeled Stairs -lung, LLL nodule TB FNA are multiple dark-red soft tissue fragments, 2.8 x 0.7 x 0.2 cm in aggregate. The specimen is submitted entirely in A1. B. Received in a container of formalin labeled Stairs -lung, LLL nodule TB BX are multiple dark-red soft tissue fragments, 1.3 x 0.5 x 0.2 cm in aggregate. The specimen is submitted entirely in B1. Grossed by: Yelena Reynolds MS, ROXY ([facility]) 5 7:50 AM CDT [facility] OPERATIVE PROCEDURE 1: BRONCHOSCOPY 2: BRONCHOSCOPY COMPUTER-ASSISTED/ROBO TIC 5 7:50 AM T [facility] CLINICAL INFORMATION R91.1-Left lower lobe pulmonary nodule 5 7:50 AM T [facility] COMMENT The [employer] voice-activated dictation system may have been used in the creation of this report. Inherent to this system is the possibility of errors in syntax, grammar, punctuation, or other areas that could impact interpretation. If there are interpretive questions about the report, please contact the performing pathologist. Unless gross only is specified in the diagnosis, the microscopic examination substantiates the above cited diagnosis. The performance characteristics of all immunohistochemical stains cited in this report (if any) were determined by the [facility] of [facility] in compliance with CLIA'88 regulations. Some of these tests rely on the use of analyte specific reagents and are subject to specific labeling requirements by the FDA. All controls show appropriate reactivity. This testing was developed by the [facility] of [facility]. It has not been cleared or approved by the FDA. The FDA has determined that such clearance or approval is not necessary. 5 7:50 AM T [facility] Tissue SPECIMEN FROM LUNG / Unknown Collection / Unknown 12/31/2024 2:04 PM CDT 12/31/2024 3:22 PM CDT Tissue specimen (specimen) SPECIMEN FROM LUNG / Unknown 12/31/2024 2:10 PM CDT 12/31/2024 3:22 PM CDT Mckenzie Schwartz MD PATHOLOGY/CYTOLOGY ORDERABLES Fi nal Result [facility] # [id number] [address] [place] [address] * CA ANES INSERT ENDOTRACHEAL AIRWAY (12/31/2024 1:41 PM CDT) Narrative Jason Jean CRNA - 12/31/2024 1:41 PM CDT Jason Jean CRNA 12/31/2024 1:49 PM Airway Date/Time: 12/31/2024 1:41 PM Location: OR Plan: elective intubation Patient Identity Confirmed by: Verbally with patient Airway: not difficult Staffing Performed: Anesthesiologist (/) Authorized by: Usama Au MD Performed by: Jason Jean CRNA Indications and Patient Condition: Indications for Airway Management: Anesthesia Sedation Level: general anesthesia Preoxygenated: yes Patient Position: Sniffing Mask Difficulty Assessment: 1 - vent by mask Plan to extubate at end of case: Yes Final Airway Details: Final Airway Type: Endotracheal airway ETT Cuffed: Yes Cuff Volume (mL): 6 Technique Used for Successful ETT Placement: Direct laryngoscopy Devices/Methods Used in Placement: Intubating stylet Blade Type: curved blade Blade Size: 3 Insertion Site: Oral ETT Size (mm): 8.0 Measured from: Gums ETT to Gums (cm): 19 Tube secured with: Tape Placement Verified by: auscultation, end tidal CO2 and chest rise Cormack-Lehane Classification: Grade IIa - partial view of glottis Number of Attempts at Approach: 2 Ventilation Between Attempts: 2 hand mask Number of Other Approaches Attempted: 1 Additional Procedure Information: atraumatic and dentition unchanged Unsuccessful Attempts: Unsuccessful Airways Attempted: Endotracheal tube Unsuccessful Approaches for ETT: Direct laryngoscopy Blade Type: curved blade Blade Size: 3 Unsuccessful Attempt(s) Cormack Lehane Class: Grade IIa - partial view of glottis Usama Au MD PROCEDURE/MINOR SURGICAL ORDER KEN Final Result * (ABNORMAL) CBC WITH DIFFERENTIAL (12/31/2024 11:19 AM [facility]) WBC 8.3 4.8 - 10.8 K/uL 12/31/2024 11:31 AM [facility] RBC 3.47(L) 4.20 - 5.40 M/uL 12/31/2024 11:31 AM [facility] HEMOGLOBIN 10.8(L) 12.0 - 16.0 g/dL 12/31/2024 11:31 AM [facility] HEMATOCRIT 33.3(L) 36.0 - 46.0 % 12/31/2024 11:31 AM [facility] MCV 96.0 84.0 - 103.0 fL 12/31/2024 11:31 AM [facility] MCH 31.1 27.0 - 34.0 pg 12/31/2024 11:31 AM [facility] MCHC 32.4 30.0 - 35.0 g/dL 12/31/2024 11:31 AM [facility] PLATELETS 183 140 - 440 K/uL 12/31/2024 11:31 AM [facility] MPV 10.6 8.9 - 12.8 fL 12/31/2024 11:31 AM [facility] RDW 13.6 11.0 - 14.5 % 12/31/2024 11:31 AM [facility] RDW-STDEV 48.1 37.0 - 54.0 fL 12/31/2024 11:31 AM [facility] NEUTROPHILS 74 42 - 75 % 12/31/2024 11:31 AM [facility] LYMPHOCYTES 19(L) 24 - 44 % 12/31/2024 11:31 AM [facility] MONOCYTES 6 2 - 10 % 12/31/2024 11:31 AM [facility] EOSINOPHILS 1 0 - 7 % 12/31/2024 11:31 AM CDT [facility] BASOPHILS 0 0 - 1 % 12/31/2024 11:31 AM CDT [facility] IMMATURE GRANULOCYTES 0 0 - 2 % 12/31/2024 11:31 AM CDT [facility] NEUTROPHIL ABSOLUTE 6.09 2.00 - 8.00 K/uL 12/31/2024 11:31 AM CDT [facility] LYMPHOCYTE ABSOLUTE 1.58 1.20 - 4.00 K/uL 12/31/2024 11:31 AM T [facility] MONOCYTE ABSOLUTE 0.48 0.10 - 0.60 K/uL 12/31/2024 11:31 AM CDT [facility] EOSINOPHIL ABSOLUTE 0.08 0.00 - 0.70 K/uL 12/31/2024 11:31 AM T [facility] BASOPHILS ABSOLUTE 0.03 0.00 - 0.20 K/uL 12/31/2024 11:31 AM CDT [facility] IMMATURE GRANULOCYTES ABSOLUTE 0.02 0.00 - 0.10 K/uL 12/31/2024 11:31 AM [facility] SMEAR REVIEWED: NA - Not Applicable 12/31/2024 11:31 AM [facility] Blood Venipuncture / Unknown 12/31/2024 11:19 AM CDT 12/31/2024 11:25 AM CDT us Usama Au MD HEMATOLOGY ORDERABLES Final Re [id number] [address] [place] [address] [place], [place] [id number] * (ABNORMAL) COMPREHENSIVE METABOLIC PANEL (12/31/2024 11:19 AM CDT) SODIUM 142 136 - 145 mmol/L 12/31/2024 11:58 AM T [facility] POTASSIUM 4.3 3.5 - 5.1 mmol/L 12/31/2024 11:58 AM [facility] CHLORIDE 106 98 - 107 mmol/L 12/31/2024 11:58 AM [facility] CO2 24 22 - 29 mmol/L 12/31/2024 11:58 AM [facility] CALCIUM 9.3 8.8 - 10.2 mg/dL 12/31/2024 11:58 AM [facility] BUN 18 8 - 23 mg/dL 12/31/2024 11:58 AM [facility] CREATININE 1.02(H) 0.51 - 0.95 mg/dL 12/31/2024 11:58 AM [facility] Comment:The GFR result is no t clinically significant on patients <18 or >70 years of age. GLUCOSE 105(H) 74 - 99 mg/dL 12/31/2024 11:58 AM [facility] TOTAL PROTEIN 6.5 6.4 - 8.3 g/dL 12/31/2024 11:58 AM [facility] ALBUMIN 4.2 3.5 - 5.2 g/dL 12/31/2024 11:58 AM [facility] BILIRUBIN TOTAL 0.3 0.0 - 1.0 mg/dL 12/31/2024 11:58 AM [facility] ALKALINE PHOSPHATASE 83 35 - 104 U/L 12/31/2024 11:58 AM [facility] AST 14 10 - 35 U/L 12/31/2024 11:58 AM [facility] ALT 10 <=35 U/L 12/31/2024 11:58 AM [facility] GFR 56 mL/min/1. 73 sq meter 12/31/2024 11:58 AM [facility] Comment:eGFR calculated with 2020 CKD-EPI equation. Vegetarian diet, extremely high or low muscle mass, and may affect results. Cystatin C with Glomerular Filtration Rate is a suitable alternative for these patients. ANION GAP 12 9 - 20 mmol/L 12/31/2024 11:58 AM CDT [facility] Blood Venipuncture / Unknown 12/31/2024 11:19 AM CDT 12/31/2024 11:24 AM CDT Usama Au MD CHEMISTRY ORDERABLES Final Res ult [facility] CLIA # [id number] [address] [place] [address] [place] [address] * COLON CANCER SCREEN, STOOL DNA (01/16/2021 1:57 PM CDT) COLOGUARD RESULT Negative Negative [facility] Comment: NEGATIVE TEST RESULT. A negative Cologuard result indicates a low likelihood that a colorectal cancer (CRC) or advanced adenoma (adenomatous polyps with more advanced pre-malignant features) is present. The chance that a person with a negative Cologuard test has a colorectal cancer is less than 1 in 1500 (negative predictive value >99.9%) or has an advanced adenoma is less than 5.3% (negative predictive value 94.7%). These data are based on a prospective cross-sectional study of 10,000 individuals at average risk for colorectal cancer who were screened with both Cologuard and colonoscopy. (Maricruz Arcos al, N Engl J Med 2014;370(14):8418-0508) The normal value (reference range) for this assay is negative. COLOGUARD RE-SCREENING RECOMMENDATION: Periodic colorectal cancer screening is an important part of preventive healthcare for asymptomatic individuals at average risk for colorectal cancer. Following a negative Cologuard result, the [place] [employer] Society and U.S. Multi-Society Task Force screening guidelines recommend a Cologuard re-screening interval of 3 years. References: [place] [employer] Guideline for Colorectal Cancer Screening: https://www.cancer.org/cancer/lzqpu-zfipdz-dvlgyd/tyroftrhe-fdxnbkvql-xyxxtef/ac s-rec ommendations.html.; Dean BRANTLEY, Rylee CR, Darío RicoK, Colorectal Cancer Screening: Recommendations for Physicians and Patients from the U.S. Multi-Society Task Force on Colorectal Cancer Screening , Am J Gastroenterology 2017; 112:6212-5174. TEST DESCRIPTION: Composite algorithmic analysis of stool DNA-biomarkers with hemoglobin immunoassay. Quantitative values of individual biomarkers are not reportable and are not associated with individual biomarker result reference ranges. Cologuard is intended for colorectal cancer screening of adults of either sex, 45 years or older, who are at average-risk for colorectal cancer (CRC). Cologuard has been approved for use by the U.S. FDA. The performance of Cologuard was established in a cross sectional study of average-risk adults aged 50-84. Cologuard performance in patients ages 45 to 49 years was estimated by sub-group analysis of near-age groups. Colonoscopies performed for a positive result may find as the most clinically significant lesion: colorectal cancer [4.0%], advanced adenoma (including sessile serrated polyps greater than or equal to 1cm diameter) [20%] or non- advanced adenoma [31%]; or no colorectal neoplasia [45%]. These estimates are derived from a prospective cross-sectional screening study of 10,000 individuals at average risk for colorectal cancer who were screened with both Cologuard and colonoscopy. (Maricruz Velasquez. et al, N Engl J Med 2014;370(14):8170-0917.) Cologuard may produce a false negative or false positive result (no colorectal cancer or precancerous polyp present at colonoscopy follow up). A negative Cologuard test result does not guarantee the absence of CRC or advanced adenoma (pre-cancer). The current Cologuard screening interval is every 3 years. ([place] [employer] and U.S. Multi-Society Task Force). Cologuard performance data in a 10,000 patient pivotal study using colonoscopy as the reference method can be accessed at the following location: www.[employer].com/results. Additional description of the Cologuard test process, warnings and precautions can be found at www.cologOneTwoSeerd.com. Stool STOOL SPECIMEN / Unknown 01/16/2021 1:57 PM CDT 01/18/2021 10:17 PM CDT us Melani Freedman WIRELESS FIELD TECHNICIAN BODY FLUIDS AND STOOLS Final Res ult [facility] CLIA # [id number] [address] [place] [address] * XR DEXA BONE DENSITY AXIAL 1 OR MORE SITES (06/24/2018 2:33 PM HEAD SCORER) Anatomical Region Laterality Modality Other Impressions 06/24/2018 2:41 PM HEAD SCORER Abnormal examination Low bone density/osteopenia is present in the left proximal femur and lumbar spine lying just below the average patient's age-matched control in the hip consistent with age-appropriate physiologic demineralization. NOF guidelines recommend consideration of FDA-approved medical therapies in patients with FRAX determined 10-year probabilities of hip/major osteoporosis-related fractures equal or greater than 3%/20% respectively. Consider assessing fracture risk using the FRAX analysis tool for guidance of clinical management available online at www.shef.ac.uk/FRAX/. Enter [employer] for Select DXA and the Femoral Neck BMD value. Also consider remeasuring no sooner than two years only as clinically needed. Narrative 06/24/2018 2:41 PM HEAD SCORER DEXA Evaluation of the Lumbar Spine and Left Proximal Femur Reason for Consultation: Ovarian failure. Evaluation of bone mineral density. The following absorptiometry data were obtained. The quality of this examination is acceptable with regards to count density, processed images, data display and lack of important artifacts (including but not limited to motion and attenuation artifacts). Serial examination number one. L1-L4 BMD (g/cm2): 0.898 Adult T-score: -1.4 Adult Z-score: 0.9 Left Femoral Neck BMD (g/cm2): 0.591 Adult T-score: -2.3 Adult Z-score: -0.4 Left Total Hip BMD (g/cm2): 0.852 Adult T-score: -0.7 Adult Z-score: 0.9 Procedure Note Jan Paz MD - 09/20/2020 DEXA Evaluation of the Lumbar Spine and Left Proximal Femur Reason for Consultation: Ovarian failure. Evaluation of bone mineral density. The following absorptiometry data were obtained. The quality of this examination is acceptable with regards to count density, processed images, data display and lack of important artifacts (including but not limited to motion and attenuation artifacts). Serial examination number one. L1-L4 BMD (g/cm2): 0.898 Adult T-score: -1.4 Adult Z-score: 0.9 Left Femoral Neck BMD (g/cm2): 0.591 Adult T-score: -2.3 Adult Z-score: -0.4 Left Total Hip BMD (g/cm2): 0.852 Adult T-score: -0.7 Adult Z-score: 0.9 IMPRESSION Abnormal examination Low bone density/osteopenia is present in the left proximal femur and lumbar spine lying just below the average patient's age-matched control in the hip consistent with age-appropriate physiologic demineralization. NOF guidelines recommend consideration of FDA-approved medical therapies in patients with FRAX determined 10-year probabilities of hip/major osteoporosis-related fractures equal or greater than 3%/20% respectively. Consider assessing fracture risk using the FRAX analysis tool for guidance of clinical management available online at www.shef.ac.uk/FRAX/. Enter [employer] for Select DXA and the Femoral Neck BMD value. Also consider remeasuring no sooner than two years only as clinically needed. Khadar RAMSEY DIAGNOSTIC IMAGING ORDERABLES Final Result from Last 3 Months or Most Recently Relevant to Health Maintenance Insurance DUAL COMPLETE HMO [facility] [id number] Advance Directives For more information, please contact: [phone] * Full Code (Latest Code Status on File) Date Activated Date Inactivated Comments 12/31/2024 11:18 AM 12/31/2024 5:48 PM * Full Code Date Activated Date Inactivated Comments 07/18/2024 1:33 PM 09/03/2024 6:40 PM * Full Code Date Activated Date Inactivated Comments 01/28/2024 7:57 PM 01/31/2024 4:57 PM * Full Code Date Activated Date Inactivated Comments 10/24/2022 2:11 PM 01/08/2023 9:51 AM Care Teams Religion Teacher Relationship Specialty Start Date End Date Gary Guardado MD [address] [phone] PCP - General Family Practice 12/26/16
--- OUTSIDE RECORDS SUMMARY | 2025-03-22 00:16 | XMS_ITS | Encounter Summary ---
Author Organization [facility] Address [address] [place] [address] Care Team Providers Care Odd Shoe Examiner Name Role Phone Gary Guardado MD Primary Care Provider [phone] Encounter Details Date Type Department Care Team (Latest Contact Info) Description 07/07/2004 Outpatient Historical [facility] General and Trauma Surgery-[address] [place] [address] Earle De La Torre MD NO ADDRESS ON FILE CAROTID ART OCCL-NO INFARCT (Primary Dx) Social History Tobacco Use Types Packs/Day Years Used Date Smoking Tobacco: Never Assessed Comments Unknown Sex and Gender Information Value Date Recorded Sex Assigned at Not on file 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 Gender Identity Not on file Sexual Orientation Not on file documented as of this encounter Plan of Treatment Not on file documented as of this encounter Visit Diagnoses Diagnosis Occlusion and stenosis of carotid artery without mention of cerebral infarction- Primary documented in this encounter Additional Health Concerns Infection Onset Date Last Indicated Resolved Time R/O COVID-19 08/18/2020 08/18/2020 08/18/2020 5:52 PM CDT documented as of this encounter Care Teams Odd Shoe Examiner Relationship Specialty Start Date End Date Gary Guardado MD [address] [facility] [address] [place] [phone] PCP - General Family Practice 12/26/16 documented as of this encounter
--- OUTSIDE RECORDS SUMMARY | 2025-03-22 00:16 | XMS_ITS | Encounter Summary ---
Author Organization [facility] Address [address] [place] [address] Care Team Providers Care Cold Rolling Supervisor Name Role Phone Gary Guardado MD Primary Care Provider [phone] Encounter Details Date Type Department Care Team (Latest Contact Info) Description 01/05/2005 Outpatient Historical [facility] Cardiovascular Services [address] [place] [address] Maikel Garcia MD [address] [address] MULT PRECEREBRAL OCCL-NO INFARCT (Primary Dx) Social History Tobacco Use Types Packs/Day Years Used Date Smoking Tobacco: Never Assessed Comments Unknown Sex and Gender Information Value Date Recorded Sex Assigned at Not on file 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
--- OUTSIDE RECORDS SUMMARY | 2025-03-22 00:16 | XMS_ITS | Encounter Summary ---
Author Organization [facility] Address [address] [place] [address] Care Team Providers Care Electrician Rectifier Maintenance Name Role Phone Gary Guardado MD Primary Care Provider [phone] Encounter Details Date Type Department Care Team (Latest Contact Info) Description 09/07/2006 Outpatient Historical [facility] Family Medicine- [address] [place] [address] Renee Titus NP NO ADDRESS ON FILE Acute Pharyngitis (Primary Dx); Contusion of Unspecified Part of Lower Limb Social History Tobacco Use Types Packs/Day Years Used Date Smoking Tobacco: Never Assessed Comments Unknown Sex and Gender Information Value Date Recorded Sex Assigned at Not on file 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 Gender Identity Not on file Sexual Orientation Not on file documented as of this encounter Plan of Treatment Not on file documented as of this encounter Visit Diagnoses Diagnosis Acute pharyngitis- Primary Contusion of unspecified part of lower limb documented in this encounter Additional Health Concerns Infection Onset Date Last Indicated Resolved Time R/O COVID-19 08/18/2020 08/18/2020 08/18/2020 5:52 PM CDT documented as of this encounter Care Teams Electrician Rectifier Maintenance Relationship Specialty Start Date End Date Gary Guardado MD [address] [phone] PCP - General Family Practice 12/26/16 documented as of this encounter
--- OUTSIDE RECORDS SUMMARY | 2025-03-22 00:16 | XMS_ITS | Encounter Summary ---
Author Organization [facility] Address [address] [place] [address] Care Team Providers Care Scada Engineer Name Role Phone Gary Guardado MD Primary Care Provider [phone] Encounter Details Date Type Department Care Team (Latest Contact Info) Description 06/02/2002 Outpatient Historical [facility] Family Medicine- [address] [place] [address] Francy Wade MD NO ADDRESS ON FILE HYPERTENSION NOS (Primary Dx); ANXIETY STATE NOS Social History Tobacco Use Types Packs/Day Years Used Date Smoking Tobacco: Never Assessed Comments Unknown Sex and Gender Information Value Date Recorded Sex Assigned at Not on file 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 Gender Identity Not on file Sexual Orientation Not on file documented as of this encounter Plan of Treatment Not on file documented as of this encounter Visit Diagnoses Diagnosis Unspecified essential hypertension- Primary Anxiety state, unspecified documented in this encounter Additional Health Concerns Infection Onset Date Last Indicated Resolved Time R/O COVID-19 08/18/2020 08/18/2020 08/18/2020 5:52 PM CDT documented as of this encounter Care Teams Scada Engineer Relationship Specialty Start Date End Date Gary Guardado MD [address] [facility] [address] [place] [phone] PCP - General Family Practice 12/26/16 documented as of this encounter
--- OUTSIDE RECORDS SUMMARY | 2025-03-22 00:16 | XMS_ITS | Encounter Summary ---
Author Organization [facility] Address [address] [place] [address] Care Team Providers Care Hr Operations Advisor Name Role Phone Gary Guardado MD Primary Care Provider [phone] Encounter Details Date Type Department Care Team (Latest Contact Info) Description 03/18/2007 Outpatient Historical [facility] General Surgery [address] [address] [address] [place] [address] Wilver Desai DO NO ADDRESS ON FILE Benign Peyman Lg Bowel (Primary Dx) Social History Tobacco Use Types Packs/Day Years Used Date Smoking Tobacco: Never Assessed Comments Unknown Sex and Gender Information Value Date Recorded Sex Assigned at Not on file 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 Gender Identity Not on file Sexual Orientation Not on file documented as of this encounter Plan of Treatment Not on file documented as of this encounter Visit Diagnoses Diagnosis Benign peyman lg bowel- Primary Benign neoplasm of colon documented in this encounter Additional Health Concerns Infection Onset Date Last Indicated Resolved Time R/O COVID-19 08/18/2020 08/18/2020 08/18/2020 5:52 PM CDT documented as of this encounter Care Teams Hr Operations Advisor Relationship Specialty Start Date End Date Gary Guardado MD [address] [phone] PCP - General Family Practice 12/26/16 documented as of this encounter
--- OUTSIDE RECORDS SUMMARY | 2025-03-22 00:16 | XMS_ITS | Encounter Summary ---
Author Organization [facility] Address [address] [place] [address] Care Team Providers Care Purchasing Engineer Name Role Phone Gary Guardado MD Primary Care Provider [phone] Encounter Details Date Type Department Care Team (Latest Contact Info) Description 12/18/2006 Outpatient Historical [facility] General Surgery [address] [address] [address] [place] [address] Wilver Desai DO NO ADDRESS ON FILE Neoplasm of Uncertain Behavior of Skin (Primary Dx) Social History Tobacco Use Types Packs/Day Years Used Date Smoking Tobacco: Never Assessed Comments Unknown Sex and Gender Information Value Date Recorded Sex Assigned at Not on file 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 Gender Identity Not on file Sexual Orientation Not on file documented as of this encounter Plan of Treatment Not on file documented as of this encounter Visit Diagnoses Diagnosis Neoplasm of uncertain behavior of skin- Primary documented in this encounter Additional Health Concerns Infection Onset Date Last Indicated Resolved Time R/O COVID-19 08/18/2020 08/18/2020 08/18/2020 5:52 PM CDT documented as of this encounter Care Teams Purchasing Engineer Relationship Specialty Start Date End Date Gary Guardado MD [address] [phone] PCP - General Family Practice 12/26/16 documented as of this encounter
--- OUTSIDE RECORDS SUMMARY | 2025-03-22 00:16 | XMS_ITS | Encounter Summary ---
Author Organization [facility] Address [address] [place] [address] Care Team Providers Care Evp Chief Exploration Officer Name Role Phone Gary Guardado MD Primary Care Provider +1 [phone] Encounter Details Date Type Department Care Team (Late st Contact Info) Description 04/24/2024 Lab Requisition [facility] General Laboratory Services [place] [address] [place] [address] Mica Pritchard, HAYLE[address] [place] [address] Unspecified abdominal pain Social History Tobacco Use Types Packs/Day Years Used Date Smoking Tobacco: Every Day Cigarettes 2 65.1 Started: 01/30/1960 Smokeless Tobacco: Never Alcohol Use Standard Drinks/Week Comments No 0 [...] who hurts you emotionally and/or physically? No 04/24/2024 Food Insecurity Answer Date Recorded Social/Environmental Concerns No concerns Transportation Needs Answer Date Record ed Social/Environmental Concerns No concerns Housing Stability Answer Date Recorded Social/Environmental Concerns No concerns Utility Needs Answer Date Recorded Social/Environmental Concerns No concerns Education Answer Date Recorded What is the highest level of school you have completed or the highest degree you have received? 6th grade 01/28/2024 Comments No Sex and Gender Information Value Date Recorded Sex Assigned at Not on file Legal Sex Female 2:49 PM ADJUNCT ENGLISH INSTRUCTOR Gender Identity Not on file Sexual Orientation Not on file documented as of this encounter Plan of Treatment Upcoming Encounters Date Type Department Care Team (Late st Contact Info) Description 07/23/2025 2:00 PM CDT Office Visit [facility] [address] [address] Gary Guardado MD [address] [address] documented as of this encounter Procedures Procedure Name Priority Date/Time Associated Diagnosis Comments DIFFERENTIAL, MANUAL Stat 04/24/2024 11:32 AM ADJUNCT ENGLISH INSTRUCTOR Unspecified abdominal pain CBC WITH DIFFERENTIAL Stat 04/24/2024 11:32 AM ADJUNCT ENGLISH INSTRUCTOR Unspecified abdominal pain TROPONIN Stat 04/24/2024 11:32 AM ADJUNCT ENGLISH INSTRUCTOR Unspecified abdominal pain LIPASE Stat 04/24/2024 11:32 AM ADJUNCT ENGLISH INSTRUCTOR Unspecified abdominal pain AMYLASE Stat 04/24/2024 11:32 AM ADJUNCT ENGLISH INSTRUCTOR Unspecified abdominal pain COMPREHENSIVE METABOLIC PANEL Stat 04/24/2024 11:32 AM ADJUNCT ENGLISH INSTRUCTOR Unspecified abdominal pain documented in this encounter Results * MANUAL DIFFERENTIAL (04/24/2024 11:32 AM ADJUNCT ENGLISH INSTRUCTOR) PLATELET EST. Consistent w Count 04/24/2024 12:05 PM [facility] ANISOCYTOSIS 1+ /hpf 04/24/2024 12:05 PM [facility] MICROCYTES 1+ /hpf 04/24/2024 12:05 PM [facility] HYPOCHROMIA 1+ /hpf 04/24/2024 12:05 PM [facility] Blood 04/24/2024 11:3 2 AM ADJUNCT ENGLISH INSTRUCTOR 04/24/2024 11:33 AM ADJUNCT ENGLISH INSTRUCTOR Narrative [facility] - 04/24/2024 12:05 PM ADJUNCT ENGLISH INSTRUCTOR Smear reviewed. Findings consistent with automated results. us Mica Macho BLINDMAKER HEMATOLOGY ORDERABLES COM Nanda l Result [facility] CLIA # [id number] [address] [place] [address] * AMYLASE (04/24/2024 11:32 AM ADJUNCT ENGLISH INSTRUCTOR) Pathologist [facility] AMYLASE 78 28 - 100 U/L 04/24/2024 12:02 PM [facility] Blood 04/24/2024 11:3 2 AM ADJUNCT ENGLISH INSTRUCTOR 04/24/2024 11:33 AM ADJUNCT ENGLISH INSTRUCTOR us Mica Hollywood BLINDMAKER CHEMISTRY ORDERABLES Final Res ult [facility] CLIA # [id number] [address] [place] [address] * (ABNORMAL) TROPONIN (04/24/2024 11:32 AM ADJUNCT ENGLISH INSTRUCTOR) TROPONIN T, 5TH GEN 26(H) <=10 ng/L 04/24/2024 12:02 PM [facility] Blood 04/24/2024 11:3 2 AM ADJUNCT ENGLISH INSTRUCTOR 04/24/2024 11:33 AM ADJUNCT ENGLISH INSTRUCTOR Narrative [facility] - 04/24/2024 12:02 PM ADJUNCT ENGLISH INSTRUCTOR Troponin elevated. us Mica Hollywood BLINDMAKER CHEMISTRY ORDERABLES Final Res ult [facility] CLIA # [id number] [address] [place] [address] * LIPASE (04/24/2024 11:32 AM ADJUNCT ENGLISH INSTRUCTOR) LIPASE 42 13 - 60 U/L 04/24/2024 12:02 PM [facility] Blood 04/24/2024 11:3 2 AM ADJUNCT ENGLISH INSTRUCTOR 04/24/2024 11:33 AM ADJUNCT ENGLISH INSTRUCTOR us Mica Hollywood BLINDMAKER CHEMISTRY ORDERABLES Final Res ult [facility] CLIA # [id number] [address] [place] [address] * (ABNORMAL) COMPREHENSIVE METABOLIC PANEL (04/24/2024 11:32 AM ADJUNCT ENGLISH INSTRUCTOR) SODIUM 138 136 - 145 mmol/L 04/24/2024 12:02 PM [facility] POTASSIUM 3.3(L) 3.5 - 5.1 mmol/L 04/24/2024 12:02 PM [facility] CHLORIDE 100 98 - 107 mmol/L 04/24/2024 12:02 PM [facility] CO2 29 22 - 29 mmol/L 04/24/2024 12:02 PM [facility] CALCIUM 9.4 8.8 - 10.2 mg/dL 04/24/2024 12:02 PM [facility] BUN 11 8 - 23 mg/dL 04/24/2024 12:02 PM [facility] CREATININE 1.15(H) 0.51 - 0.95 mg/dL 04/24/2024 12:02 PM [facility] Comment:The GFR result is no t clinically significant on patients <18 or >70 years of age. GLUCOSE 98 74 - 99 mg/dL 04/24/2024 12:02 PM [facility] TOTAL PROTEIN 6.1(L) 6.6 - 8.7 g/dL 04/24/2024 12:02 PM [facility] ALBUMIN 3.5 3.5 - 5.2 g/dL 04/24/2024 12:02 PM [facility] BILIRUBIN TOTAL 0.2 <=1.2 mg/dL 04/24/2024 12:02 PM [facility] ALKALINE PHOSPHATASE 85 35 - 104 U/L 04/24/2024 12:02 PM [facility] AST 13 10 - 35 U/L 04/24/2024 12:02 PM [facility] ALT 11 10 - 35 U/L 04/24/2024 12:02 PM [facility] GFR 49 mL/min/1.7 3 sq meter 04/24/2024 12:02 PM [facility] Comment:eGFR calculated with 2020 CKD-EPI equation. Vegetarian diet, extremely high or low muscle mass, and may affect results. Cystatin C with Glomerular Filtration Rate is a suitable alternative for these patients. ANION GAP 9(L) 12 - 20 mmol/L 04/24/2024 12:02 PM [facility] Blood 04/24/2024 11:3 2 AM ADJUNCT ENGLISH INSTRUCTOR 04/24/2024 11:33 AM ADJUNCT ENGLISH INSTRUCTOR us Mica Pritchard NP CHEMISTRY ORDERABLES Final Res ult [facility] CLIA # [id number] [address] [place] [address] * (ABNORMAL) CBC WITH DIFFERENTIAL (04/24/2024 11:32 AM ADJUNCT ENGLISH INSTRUCTOR) WBC 8.5 4.0 - 10.0 K/uL 04/24/2024 12:05 PM [facility] RBC 3.53(L) 3.93 - 5.22 M/uL 04/24/2024 12:05 PM [facility] HEMOGLOBIN 10.5(L) 11.2 - 15.7 g/dL 04/24/2024 12:05 PM [facility] HEMATOCRIT 31.7(L) 34.1 - 44.9 % 04/24/2024 12:05 PM [facility] MCV 89.8 79.4 - 94.8 fL 04/24/2024 12:05 PM [facility] MCH 29.7 25.6 - 32.2 pg 04/24/2024 12:05 PM [facility] MCHC 33.1 32.2 - 35.5 g/dL 04/24/2024 12:05 PM [facility] RDW 14.4 11.0 - 14.5 % 04/24/2024 12:05 PM [facility] RDW-STDEV 46.7 36.9 - 56.9 fL 04/24/2024 12:05 PM [facility] PLATELETS 323 163 - 337 K/uL 04/24/2024 12:05 PM [facility] MPV 8.9(L) 10.0 - 14.8 fL 04/24/2024 12:05 PM [facility] NEUTROPHILS 61 34 - 71 % 04/24/2024 12:05 PM [facility] LYMPHOCYTES 25 19 - 52 % 04/24/2024 12:05 PM [facility] MONOCYTES 8 5 - 13 % 04/24/2024 12:05 PM [facility] EOSINOPHILS 5 1 - 6 % 04/24/2024 12:05 PM [facility] BASOPHILS 1 0 - 1 % 04/24/2024 12:05 PM [facility] IMMATURE GRANULOCYTES 0 % 04/24/2024 12:05 PM [facility] NEUTROPHIL ABSOLUTE 5.15 1.56 - 6.13 K/uL 04/24/2024 12:05 PM [facility] LYMPHOCYTE ABSOLUTE 2.12 1.20 - 3.40 K/uL 04/24/2024 12:05 PM ADJUNCT ENGLISH INSTRUCTOR [facility] MONOCYTE ABSOLUTE 0.63(H) 0.24 - 0.36 K/uL 04/24/2024 12:05 PM ADJUNCT ENGLISH INSTRUCTOR [facility] EOSINOPHIL ABSOLUTE 0.46(H) 0.04 - 0.36 K/uL 04/24/2024 12:05 PM ADJUNCT ENGLISH INSTRUCTOR [facility] BASOPHILS ABSOLUTE 0.07 0.01 - 0.08 K/uL 04/24/2024 12:05 PM ADJUNCT ENGLISH INSTRUCTOR [facility] IMMATURE GRANULOCYTES ABSOLUTE 0.02 K/uL 04/24/2024 12:05 PM [facility] Blood 04/24/2024 11:3 2 AM ADJUNCT ENGLISH INSTRUCTOR 04/24/2024 11:33 AM ADJUNCT ENGLISH INSTRUCTOR us Mica Pritchard BLINDMAKER HEMATOLOGY ORDERABLES Final Re sult [facility] CLIA # [id number] [address] [address] documented in this encounter Visit Diagnoses Diagnosis Unspecified abdominal pain documented in this encounter Care Teams Evp Chief Exploration Officer Relationship Specialty Start Date End Date Gary Guardado MD [address] [phone] PCP - General Family Practice 12/26/16 documented as of this encounter
--- OUTSIDE RECORDS SUMMARY | 2025-03-22 00:16 | XMS_ITS | Encounter Summary ---
Author Organization [facility] Address [address] [place] [address] Care Team Providers Care Oak Tanner Name Role Phone Gary Guardado MD Primary Care Provider [phone] [phone] Encounter Details Date Type Department Care Team (Latest Contact Info) Description 01/02/[address] [facility] Cardiac Tractor Trailer Moving Van Driver [address] [place] [address] Jan Hoover MD [address] [place] [address] Unspecified Peripheral Vascular Disease (Primary Dx) Social History Tobacco Use Types Packs/Day Years Used Date Smoking Tobacco: Never Assessed Comments Unknown Sex and Gender Information Value Date Recorded Sex Assigned at Not on file Legal Sex Female 4:26 AM RADAR ENGINEER Gender Identity Not on file Sexual Orientation Not on file documented as of this encounter Plan of Treatment Not on file documented as of this encounter Procedures Procedure Name Priority Date/Time Associated Diagnosis Comments PT AND APTT Routine 01/02/2007 8:02 AM CDT CBC WITHOUT DIFFERENTIAL Routine 01/02/2007 8:02 AM CDT BASIC METABOLIC PANEL Routine 01/02/2007 8:02 AM CDT documented in this encounter Results * PT AND APTT (01/02/2007 8:02 AM CDT) PROTIME 13.8 13.0 - 15.7 Secs INTERFACE SYSTEM Comment: As of 06 note change in normal range. INR 0.9 INTERFACE SYSTEM Comment: Expected Values for INR: DVT/PE Goal INR 2.5; range 2.0 - 3.0 Valve Replacement Tissue Goal INR 2.5; range 2.0 - 3.0 Mechanical Goal INR 3.0; range 2.5 - 3.5 POST-PA Goal INR 2.5; range 2.0 - 3.0 or Goal 3.0; range 2.5 - 3.5 Atrial Fibrillation Goal INR 2.5; range 2.0 - 3.0 Ischemic Stroke Goal INR 2.5; range 2.0 - 3.0 For additional information see Guidelines for Anticoagulation available from the pharmacy Uma Michelle PTT 28.1 21.6 - 35.6 Secs INTERFACE SYSTEM Comment: Therapeutic Range: Hi-level PE/DVT heparin protocol 80.1 -95.0 sec Lo-level PE/DVT heparin protocol 67.1 - 80.0 sec Cardiac Heparin Protocol 67.1 - 85.0 sec Neuro Heparin Protocol 67.1 - 80.0 sec As of 04/05/2006 note change in APTT Normal Range. 01/02/2007 8:02 AM CDT us Jan Hoover MD HEMATOLOGY ORDERABLES Edited INTERFACE SYSTEM Refer to clinic/hospital department * CBC WITHOUT DIFFERENTIAL (01/02/2007 8:02 AM CDT) WBC 8.4 4.8 - 10.8 K/ul INTERFACE SYSTEM RBC 4.38 4.20 - 5.40 Mil/ul INTERFACE SYSTEM HEMOGLOBIN 13.3 12.0 - 16.0 g/dL INTERFACE SYSTEM HEMATOCRIT 38.6 36.0 - 46.0 % INTERFACE SYSTEM MCV 88.1 84.0 - 103.0 Fl INTERFACE SYSTEM MCH 30.4 27.0 - 34.0 pg INTERFACE SYSTEM MCHC 34.5 30.0 - 35.0 g/dL INTERFACE SYSTEM RDW 12.8 11.0 - 14.5 % INTERFACE SYSTEM PLATELETS 254 140 - 440 K/ul INTERFACE SYSTEM MPV 10.6 8.9 - 12.8 Fl INTERFACE SYSTEM NEUTROPHILS 57.4 42.2 - 75.2 % INTERFACE SYSTEM LYMPHOCYTES 34.5 24.0 - 44.0 % INTERFACE SYSTEM MONOCYTES 7.2 2.0 - 10.0 % INTERFACE SYSTEM EOSINOPHILS 0.7 0.0 - 7.0 % INTERFACE SYSTEM BASOPHILS 0.2 0.0 - 1.0 % INTERFACE SYSTEM NEUTROPHIL ABSOLUTE 4.8 2.0 - 8.0 K/ul INTERFACE SYSTEM LYMPHOCYTE ABSOLUTE 2.9 1.2 - 4.0 K/ul INTERFACE SYSTEM MONOCYTE ABSOLUTE 0.6 0.1 - 0.6 K/ul INTERFACE SYSTEM EOSINOPHIL ABSOLUTE 0.1 0.0 - 0.7 K/ul INTERFACE SYSTEM BASOPHILS ABSOLUTE 0.0 0.0 - 0.2 K/ul INTERFACE SYSTEM 01/02/2007 8:02 AM CDT Jan Hoover MD HEMATOLOGY ORDERABLES Edited Performing Organization Address City[facility] Phone Number INTERFACE SYSTEM Refer to clinic/hospital department * (ABNORMAL) BASIC METABOLIC PANEL (01/02/2007 8:02 AM CDT) GLUCOSE 122(H) 70 - 110 mg/dL INTERFACE SYSTEM BUN 12 7 - 17 mg/dL INTERFACE SYSTEM CREATININE 1.2 0.7 - 1.2 mg/dL INTERFACE SYSTEM SODIUM 141 136 - 145 mEq/L INTERFACE SYSTEM POTASSIUM 3.6 3.5 - 5.0 mEq/L INTERFACE SYSTEM CHLORIDE 104 95 - 110 mEq/L INTERFACE SYSTEM CO2 28 22 - 32 mmol/l INTERFACE SYSTEM CALCIUM 10.0 8.4 - 10.5 mg/dL INTERFACE SYSTEM ANION GAP 13 9 - 20 mEq/L INTERFACE SYSTEM OSMOLALITY, CALCULATED 290 275 - 295 mOsm/Kg INTERFACE SYSTEM 01/02/2007 8:02 AM CDT Jan Hoover MD CHEMISTRY ORDERABLES Edited Performing Organization Address City/[facility] Co de Phone Number INTERFACE SYSTEM Refer to clinic/hospital department documented in this encounter Visit Diagnoses Diagnosis Peripheral vascular disease, unspecified- Primary documented in this encounter Additional Health Concerns Infection Onset Date Last Indicated Resolved Time R/O COVID-19 08/18/2020 08/18/2020 08/18/2020 5:52 PM CDT documented as of this encounter Care Teams Oak Tanner Relationship Specialty Start Date End Date Gary Guardado MD [address] [phone] PCP - General Family Practice 12/26/16 documented as of this encounter
--- OUTSIDE RECORDS SUMMARY | 2025-03-22 00:16 | XMS_ITS | Encounter Summary ---
Author Organization [facility] Address [address] [place] [address] Care Team Providers Care Parts Data Writer Name Role Phone Gary Guardado MD Primary Care Provider [phone] Encounter Details Date Type Department Care Team (Latest Contact Info) Description 08/12/2003 Outpatient Historical [facility] Family Medicine- [address] [place] [address] Renee Titus NP NO ADDRESS ON FILE Carbuncle of leg (Primary Dx) Social History Tobacco Use Types Packs/Day Years Used Date Smoking Tobacco: Never Assessed Comments Unknown Sex and Gender Information Value Date Recorded Sex Assigned at Not on file Legal Sex Female 4:26 AM LADIES 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 Gender Identity Not on file Sexual Orientation Not on file documented as of this encounter Plan of Treatment Not on file documented as of this encounter Visit Diagnoses Diagnosis Carbuncle of leg- Primary Carbuncle and furuncle of leg, except foot documented in this encounter Additional Health Concerns Infection Onset Date Last Indicated Resolved Time R/O COVID-19 08/18/2020 08/18/2020 08/18/2020 5:52 PM CDT documented as of this encounter Care Teams Parts Data Writer Relationship Specialty Start Date End Date Gary Guardado MD [address] [facility] [address] [place] [phone] PCP - General Family Practice 12/26/16 documented as of this encounter
--- OUTSIDE RECORDS SUMMARY | 2025-03-22 00:16 | XMS_ITS | Encounter Summary ---
Author Organization [facility] Address [address] [place] [address] Care Team Providers Care Legal Job Titles Name Role Phone Gary Guardado MD Primary Care Provider [phone] [phone] Encounter Details Date Type Department Care Team (Latest Contact Info) Description 07/26/2004 Outpatient Historical [facility] Imaging Services [address] 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
--- OUTSIDE RECORDS SUMMARY | 2025-03-22 00:16 | XMS_ITS | Encounter Summary ---
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
--- OUTSIDE RECORDS SUMMARY | 2025-03-22 00:16 | XMS_ITS | Encounter Summary ---
Author Organization [facility] Address [address] [place] [address] Care Team Providers Care Signal Tower Operator Name Role Phone Gary Guardado MD Primary Care Provider +1 [phone] Encounter Details Date Type Department Care Team (Latest Contact Info) Description 05/21/2003 Outpatient Historical [facility] Imaging Services [address] 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
--- OUTSIDE RECORDS SUMMARY | 2025-03-22 00:16 | XMS_ITS | Encounter Summary ---
Author Organization [facility] Address [address] [place] [address] Care Team Providers Care Director Of Brand Marketing Name Role Phone Gary Guardado MD Primary Care Provider [phone] [phone] Encounter Details Date Type Department Care Team (Latest Contact Info) Description 01/05/2004 Outpatient Historical [facility] Cardiovascular Services [address] [place] [address] Maikel Garcia MD [address] [address] MULT PRECEREBRAL OCCL-NO INFARCT (Primary Dx) Social History Tobacco Use Types Packs/Day Years Used Date Smoking Tobacco: Never Assessed Comments Unknown Sex and Gender Information Value Date Recorded Sex Assigned at Not on file Legal Sex Female 4:26 AM ELIGIBILITY SPECIALIST Gender Identity Not on file Sexual Orientation [...] documented as of this encounter Care Teams Director Of Brand Marketing Relationship Specialty Start Date End Date Gary Guardado MD [address] [phone] PCP - General Family Practice 12/26/16 documented as of this encounter
--- OUTSIDE RECORDS SUMMARY | 2025-03-22 00:16 | XMS_ITS | Encounter Summary ---
Author Organization [facility] Address [address] [place] [address] Care Team Providers Care Clinical Services Manager Name Role Phone Gary Guardado MD Primary Care Provider [phone] [phone] Encounter Details Date Type Department Care Team (Latest Contact Info) Description 12/19/2002 Outpatient Historical [facility] Family Medicine- [address] [place] [address] Francy Wade MD NO ADDRESS ON FILE LUMBAGO (Primary Dx); TEAR FILM INSUFFIC NOS Social History Tobacco Use Types Packs/Day Years Used Date Smoking Tobacco: Never Assessed Comments Unknown Sex and Gender Information Value Date Recorded Sex Assigned at Not on file Legal Sex Female 4:26 AM GLAZIER APPRENTICE Gender Identity Not on file Sexual Orientation Not on file documented as of this encounter Plan of Treatment Not on file documented as of this encounter Visit Diagnoses Diagnosis Lumbago- Primary Tear film insufficiency, unspecified documented in this encounter Additional Health Concerns Infection Onset Date Last Indicated Resolved Time R/O COVID-19 08/18/2020 08/18/2020 08/18/2020 5:52 PM CDT documented as of this encounter Care Teams Clinical Services Manager Relationship Specialty Start Date End Date Gary Guardado MD [address] [facility] [address] [place] [phone] PCP - General Family Practice 12/26/16 documented as of this encounter
--- OUTSIDE RECORDS SUMMARY | 2025-03-22 00:16 | XMS_ITS | Encounter Summary ---
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
--- OUTSIDE RECORDS SUMMARY | 2025-03-22 00:16 | XMS_ITS | Encounter Summary ---
Author Organization [facility] Address [address] Dela Cruz: Epic Prelude ADT L[place] JAMES [address] Care Team Providers Care Head Coach Name Role Phone Gary Guardado MD Primary Care Provider +1 [phone] Encounter Details Date Type Department Care Team (Late st Contact Info) Description 03/18/2007 Outpatient Historical Wilver Desai DO NO ADDRESS ON FILE Social History Tobacco Use Types Packs/Day Years Used Date Smoking Tobacco: Never Assessed Comments Unknown Sex and Gender Information Value Date Recorded Sex Assigned at Not on file Legal Sex Female 4:26 AM NURSE EDUCATOR Gender Identity Not on file Sexual Orientation Not on file documented as of this encounter Plan of Treatment Not on file documented as of this encounter Visit Diagnoses Not on filedocumented in this encounter Additional Health Concerns Infection Onset Date Last Indicated Resolved Time R/O COVID-19 08/18/2020 08/18/2020 08/18/2020 5:52 PM CDT documented as of this encounter Care Teams Head Coach Relationship Specialty Start Date End Date Gary Guardado MD [address] [facility] [address] [place] [address] PCP - General Family Practice 12/26/16 documented as of this encounter
--- OUTSIDE RECORDS SUMMARY | 2025-03-22 00:16 | XMS_ITS | Encounter Summary ---
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
--- OUTSIDE RECORDS SUMMARY | 2025-03-22 00:16 | XMS_ITS | Encounter Summary ---
Author Organization [facility] Address [address] [place] [address] Care Team Providers Care Faculty I On Call Medical Assistant Name Role Phone Gary Guardado MD Primary Care Provider +1 [phone] Encounter Details Date Type Department Care Team (Latest Contact Info) Description 09/07/2003 Outpatient Historical [facility] Family Medicine- [address] [place] [address] Francy Wade MD NO ADDRESS ON FILE ALLERGIC RHINITIS NOS (Primary Dx); DIZZINESS AND GIDDINESS Social History Tobacco Use Types Packs/Day Years Used Date Smoking Tobacco: Never Assessed Comments Unknown Sex and Gender Information Value Date Recorded Sex Assigned at Not on file Legal Sex Female 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 Gender Identity Not on file Sexual Orientation Not on file documented as of this encounter Plan of Treatment Not on file documented as of this encounter Visit Diagnoses Diagnosis Allergic rhinitis, cause unspecified- Primary Dizziness and giddiness documented in this encounter Additional Health Concerns Infection Onset Date Last Indicated Resolved Time R/O COVID-19 08/18/2020 08/18/2020 08/18/2020 5:52 PM CDT documented as of this encounter Care Teams Faculty I On Call Medical Assistant Relationship Specialty Start Date End Date Gary Guardado MD [address] [facility] [address] [place] [address] PCP - General Family Practice 12/26/16 documented as of this encounter
--- OUTSIDE RECORDS SUMMARY | 2025-03-22 00:16 | XMS_ITS | Encounter Summary ---
Author Organization [facility] Address [address] [place] [address] Care Team Providers Care Tennis Coach Name Role Phone Gary Guardado MD Primary Care Provider +1 [phone] Reason for Referral * Outpatient Services (Routine) - Closed Specialty Diagnoses / Procedures Referred By Ally gilbert Referred To Contact Diagnoses Vertigo Procedures MRA HEAD WO CONTRAST Francy Wade MD NO ADDRESS ON FILE Referral ID Status Reason Start Date Expiration Date Visits Re quested Visits Authorized [id number] Closed 11/23/2009 05/22/2010 1 1 Encounter Details Date Type Department Care Team (Late st Contact Info) Description 11/23/2009 Ancillary Orders [facility] Medicine- [address] [place] [address] Francy Wade MD NO ADDRESS ON FILE Vertigo Social History Tobacco Use Types Packs/Day Years Used Date Smoking Tobacco: Every Day Cigarettes 2 48 Alcohol Use Standard Drinks/Week Comments No 0 (1 standard drink = 0.6 oz pur e alcohol) Comments No Sex and Gender Information Value Date Recorded Sex Assigned at Not on file Legal Sex Female 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 Study limited by motion artifact. 2. 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 3. Focal area of vascular narrowing and possible filling defect in right middle cerebral trifurcation. ljivon 1259 PM - uploaded from [employer] [place] 11/24/2009 1:58 PM CDT Exam: MRA HEAD WO CONTRAST Date/Time of Exam: Nov 24, 2009 11:47:00 AM History: Vertigo. Technique: Axial echo planar source data was performed. 3-D ppeg-pu-myxqpu method was utilized in reconstruction. Findings: The axial echo-planar source data shows normal flow in both carotids and in the vertebrobasilar circulation. A dominant right vertebral is present. The basilar source and vertebrals are small in size. No signs of aneurysm are identified. The 3-D reformation shows considerable motion artifact and irregular flow. The right vertebral feeding the right basilar confluence is identified. The right posterior cerebral fills via the P1 segment. The left P1 segment is hypoplastic and the left posterior cerebral fills from a origin on the left internal carotid. Anterior and middle cerebrals show considerable and regular flow signal. There is an area of redundancy and possible filling defect of the right middle cerebral trifurcation. It is difficult to evaluate the smaller vessels due to motion artifact. Procedure Note Stephan Limon MD - 11/24/2009 Exam: MRA HEAD WO CONTRAST Date/Time of Exam: Nov 24, 2009 11:47:00 AM History: Vertigo. Technique: Axial echo planar source data was performed. 3-D zdge-[id number]-[id number] method was utilized in reconstruction. Findings: The axial echo-planar source data shows normal flow in both carotids and in the vertebrobasilar circulation. A dominant right vertebral is present. The basilar source and vertebrals are small in size. No signs of aneurysm are identified. The 3-D reformation shows considerable motion artifact and irregular flow. The right vertebral feeding the right basilar confluence is identified. The right posterior cerebral fills via the P1 segment. The left P1 segment is hypoplastic and the left posterior cerebral fills from a origin on the left internal carotid. Anterior and middle cerebrals show considerable and regular flow signal. There is an area of redundancy and possible filling defect of the right middle cerebral trifurcation. It is difficult to evaluate the smaller vessels due to motion artifact. IMPRESSION Impression: 1. Study limited by motion artifact. 2. 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 3. Focal area of vascular narrowing and possible filling defect in right middle cerebral trifurcation. david 1259 PM - uploaded from [employer] Francy Wade MD MR ORDERABLES Final Resul t documented in this encounter Visit Diagnoses Diagnosis Vertigo Dizziness and giddiness documented in this encounter Additional Health Concerns Infection Onset Date Last Indicated Resolved Time R/O COVID-19 08/18/2020 08/18/2020 08/18/2020 5:52 PM CDT documented as of this encounter Care Teams Tennis Coach Relationship Specialty Start Date End Date Gary Guardado MD [address] [facility] [address] [place] [address] PCP - General Family Practice 12/26/16 documented as of this encounter
--- OUTSIDE RECORDS SUMMARY | 2025-03-22 00:16 | XMS_ITS | Encounter Summary ---
Author Organization [facility] Address [address] [place] [address] Care Team Providers Care Sales Exec Name Role Phone Gary Guardado MD Primary Care Provider +1 [phone] Encounter Details Date Type Department Care Team (Latest Contact Info) Description 12/16/2004 Outpatient Historical [facility] Family Medicine- [address] [place] [address] Francy Wade MD NO ADDRESS ON FILE SPASM OF MUSCLE (Primary Dx) Social History Tobacco Use Types Packs/Day Years Used Date Smoking Tobacco: Never Assessed Comments Unknown Sex and Gender Information Value Date Recorded Sex Assigned at Not on file 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 Gender Identity Not on file Sexual Orientation Not on file documented as of this encounter Plan of Treatment Not on file documented as of this encounter Visit Diagnoses Diagnosis Spasm of muscle- Primary documented in this encounter Additional Health Concerns Infection Onset Date Last Indicated Resolved Time R/O COVID-19 08/18/2020 08/18/2020 08/18/2020 5:52 PM CDT documented as of this encounter Care Teams Sales Exec Relationship Specialty Start Date End Date Gary Guardado MD [address] [facility] [address] [place] [address] PCP - General Family Practice 12/26/16 documented as of this encounter
--- OUTSIDE RECORDS SUMMARY | 2025-03-22 00:16 | XMS_ITS | Encounter Summary ---
Author Organization [facility] Address [address] [place] [address] Care Team Providers Care Industrial Maintenance Millwright Name Role Phone Gary Guardado MD Primary Care Provider +1 -[phone] Encounter Details Date Type Department Care Team (Latest Contact Info) Description 04/06/2003 Outpatient Historical [facility] Family Medicine- [address] [place] [address] Jake Wiley DO NO ADDRESS ON FILE HEADACHE (Primary Dx) Social History Tobacco Use Types Packs/Day Years Used Date Smoking Tobacco: Never Assessed Comments Unknown Sex and Gender Information Value Date Recorded Sex Assigned at Not on file Legal Sex Female 4: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 REFRIGERATOR CAR 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 Gender Identity Not on file Sexual Orientation Not on file documented as of this encounter Plan of Treatment Not on file documented as of this encounter Visit Diagnoses Diagnosis Headache(784.0)- Primary Headache documented in this encounter Additional Health Concerns Infection Onset Date Last Indicated Resolved Time R/O COVID-19 08/18/2020 08/18/2020 08/18/2020 5:52 PM CDT documented as of this encounter Care Teams Industrial Maintenance Millwright Relationship Specialty Start Date End Date Gary Guardado MD [address] [facility] [address] [place] [address] PCP - General Family Practice 12/26/16 documented as of this encounter
--- OUTSIDE RECORDS SUMMARY | 2025-03-22 00:16 | XMS_ITS | Encounter Summary ---
Author Organization [facility] Address [address] [place] [address] Care Team Providers Care Process Improvement Engineer Name Role Phone Gary Guardado MD Primary Care Provider +1 [phone] Encounter Details Date Type Department Care Team (Latest Contact Info) Description 03/04/2007 Outpatient Historical [facility] [place] [facility] Family Medicine- [address] [place] [address] Renee Titus NP NO ADDRESS ON FILE Lumbago (Primary Dx); Abdominal Pain, Unspecified Site Social History Tobacco Use Types Packs/Day Years Used Date Smoking Tobacco: Never Assessed Comments Unknown Sex and Gender Information Value Date Recorded Sex Assigned at Not on file 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 Gender Identity Not on file Sexual Orientation Not on file documented as of this encounter Plan of Treatment Not on file documented as of this encounter Visit Diagnoses Diagnosis Lumbago- Primary Abdominal pain, unspecified site documented in this encounter Additional Health Concerns Infection Onset Date Last Indicated Resolved Time R/O COVID-19 08/18/2020 08/18/2020 08/18/2020 5:52 PM CDT documented as of this encounter Care Teams Process Improvement Engineer Relationship Specialty Start Date End Date Gary Guardado MD [address] [facility] [address] [place] [address] PCP - General Family Practice 12/26/16 documented as of this encounter
--- OUTSIDE RECORDS SUMMARY | 2025-03-22 00:16 | XMS_ITS | Encounter Summary ---
Author Organization [facility] Address [address] [place] [address] Care Team Providers Care Bag Worker Name Role Phone Gary Guardado MD Primary Care Provider +1 -[phone] Encounter Details Date Type Department Care Team (Latest Contact Info) Description 03/28/2002 Outpatient Historical [facility] Family Medicine- [address] [place] [address] Francy Wade MD NO ADDRESS ON FILE HYPERTENSION NOS (Primary Dx); ADJ REACT-ANXIOUS MOOD Social History Tobacco Use Types Packs/Day Years Used Date Smoking Tobacco: Never Assessed Comments Unknown Sex and Gender Information Value Date Recorded Sex Assigned at Not on file Legal Sex Female 4:26 AM 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 Gender Identity Not on file Sexual Orientation Not on file documented as of this encounter Plan of Treatment Not on file documented as of this encounter Visit Diagnoses Diagnosis Unspecified essential hypertension- Primary Adjustment disorder with anxiety documented in this encounter Additional Health Concerns Infection Onset Date Last Indicated Resolved Time R/O COVID-19 08/18/2020 08/18/2020 08/18/2020 5:52 PM CDT documented as of this encounter Care Teams Bag Worker Relationship Specialty Start Date End Date Gary Guardado MD [address] [facility] [address] [place] [address] PCP - General Family Practice 12/26/16 documented as of this encounter
--- OUTSIDE RECORDS SUMMARY | 2025-03-22 00:16 | XMS_ITS | Encounter Summary ---
Author Organization [facility] Address [address] [place] [address] Care Team Providers Care Machine Shorthand Teacher Name Role Phone Gary Guardado MD Primary Care Provider +1 [phone] Encounter Details Date Type Department Care Team (Late st Contact Info) Description 06/07/2007 Outpatient Historical [facility] Family Medicine- [address] [place] [address] Francy Wade MD NO ADDRESS ON FILE Social History Tobacco Use Types Packs/Day Years Used Date Smoking Tobacco: Never Assessed Comments Unknown Sex and Gender Information Value Date Recorded Sex Assigned at Not on file Legal Sex Female 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 Gender Identity Not on file Sexual Orientation Not on file documented as of this encounter Plan of Treatment Not on file documented as of this encounter Visit Diagnoses Not on filedocumented in this encounter Additional Health Concerns Infection Onset Date Last Indicated Resolved Time R/O COVID-19 08/18/2020 08/18/2020 08/18/2020 5:52 PM CDT documented as of this encounter Care Teams Machine Shorthand Teacher Relationship Specialty Start Date End Date Gary Guardado MD [address] [facility] [address] [place] [address] PCP - General Family Practice 12/26/16 documented as of this encounter
--- OUTSIDE RECORDS SUMMARY | 2025-03-22 00:16 | XMS_ITS | Encounter Summary ---
Author Organization [facility] Address [address] [place] [address] Care Team Providers Care Golf Tournament Consultant Name Role Phone Gary Guardado MD Primary Care Provider +1 -[phone] Encounter Details Date Type Department Care Team (Late st Contact Info) Description 12/11/2006 Outpatient Historical [facility] Cardiology- [place] [address] [place] [address] Jan Hoover MD [address] [facility] [address] [place] [address] Unspecified Peripheral Vascular Disease (Primary Dx); Tobacco Use Disorder; Other and Unspecified Angina Pectoris; Cor Athrscl-Uns Vessel Social History Tobacco Use Types Packs/Day Years Used Date Smoking Tobacco: Never Assessed Comments Unknown Sex and Gender Information Value Date Recorded Sex Assigned at Not on file Legal Sex Female 4:26 AM TRANSMISSION DESIGN ENGINEER Gender Identity Not on file Sexual Orientation Not on file documented as of this encounter Plan of Treatment Not on file documented as of this encounter Visit Diagnoses Diagnosis Peripheral vascular disease, unspecified- Primary Tobacco use disorder Other and unspecified angina pectoris Coronary atherosclerosis of unspecified type of vessel, [place] or graft documented in this encounter Additional Health Concerns Infection Onset Date Last Indicated Resolved Time R/O COVID-19 08/18/2020 08/18/2020 08/18/2020 5:52 PM CDT documented as of this encounter Care Teams Golf Tournament Consultant Relationship Specialty Start Date End Date Gary Guardado MD [address] [address] PCP - General Family Practice 12/26/16 documented as of this encounter
--- OUTSIDE RECORDS SUMMARY | 2025-03-22 00:16 | XMS_ITS | Encounter Summary ---
Author Organization [facility] Address [address] [place] [address] Care Team Providers Care Poultry Dresser Name Role Phone Gary Guardado MD Primary Care Provider +1 -[phone] Encounter Details Date Type Department Care Team (Latest Contact Info) Description 01/09/2003 Outpatient Historical [facility] Family Medicine- [address] [place] [address] Jake Wiley, NO ADDRESS ON FILE DERMATITIS NOS (Primary Dx) Social History Tobacco Use Types Packs/Day Years Used Date Smoking Tobacco: Never Assessed Comments Unknown Sex and Gender Information Value Date Recorded Sex Assigned at Not on file Legal Sex Female 4:26 AM CORONARY CARE UNIT NURSE Gender Identity Not on file Sexual Orientation Not on file documented as of this encounter Plan of Treatment Not on file documented as of this encounter Visit Diagnoses Diagnosis Contact dermatitis and other eczema, due to unspecified cause- Primary documented in this encounter Additional Health Concerns Infection Onset Date Last Indicated Resolved Time R/O COVID-19 08/18/2020 08/18/2020 08/18/2020 5:52 PM CDT documented as of this encounter Care Teams Poultry Dresser Relationship Specialty Start Date End Date Gary Guardado MD [address] [facility] [address] [place] [address] PCP - General Family Practice 12/26/16 documented as of this encounter
--- OUTSIDE RECORDS SUMMARY | 2025-03-22 00:16 | XMS_ITS | Encounter Summary ---
Author Organization [facility] Address [address] [place] [address] Care Team Providers Care Test Manager Name Role Phone Gary Guardado MD Primary Care Provider +1 -[phone] Encounter Details Date Type Department Care Team (Latest Contact Info) Description 06/30/2003 Outpatient Historical [facility] General and Trauma Surgery-[address] [address] Maikel Garcia MD [address] [place] [address] [address] [place] [address] SURGERY FOLLOWUP, UNSPEC (Primary Dx) Social History Tobacco Use Types Packs/Day Years Used Date Smoking Tobacco: Never Assessed Comments Unknown Sex and Gender Information Value Date Recorded Sex Assigned at Not on file Legal Sex Female 4:26 AM DIRECTOR OF CREATIVE SERVICES Gender Identity Not on file Sexual Orientation Not on file documented as of this encounter Plan of Treatment Not on file documented as of this encounter Visit Diagnoses Diagnosis Follow-up examination, following unspecified surgery- Primary documented in this encounter Additional Health Concerns Infection Onset Date Last Indicated Resolved Time R/O COVID-19 08/18/2020 08/18/2020 08/18/2020 5:52 PM CDT documented as of this encounter Care Teams Test Manager Relationship Specialty Start Date End Date Gary Guardado MD [address] [address] PCP - General Family Practice 12/26/16 documented as of this encounter
--- OUTSIDE RECORDS SUMMARY | 2025-03-22 00:16 | XMS_ITS | Encounter Summary ---
Author Organization [facility] Address [address] [place] [address] Care Team Providers Care Grain Drier Operator Name Role Phone Gary Guardado MD Primary Care Provider +1 -[phone] Encounter Details Date Type Department Care Team (Latest Contact Info) Description 03/11/2007 Outpatient Historical [facility] General Surgery [address] [address] [address] [place] [address] Wilver Desai DO NO ADDRESS ON FILE Abdominal Pain, Left Lower Quadrant (Primary Dx); Abdominal Pain, Right Lower Quadrant; Unspecified Essential Hypertension; Mixed Hyperlipidemia Social History Tobacco Use Types Packs/Day Years Used Date Smoking Tobacco: Never Assessed Comments Unknown Sex and Gender Information Value Date Recorded Sex Assigned at Not on file Legal Sex Female 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 Gender Identity Not on file Sexual Orientation Not on file documented as of this encounter Plan of Treatment Not on file documented as of this encounter Visit Diagnoses Diagnosis Abdominal pain, left lower quadrant- Primary Abdominal pain, right lower quadrant Unspecified essential hypertension Mixed hyperlipidemia documented in this encounter Additional Health Concerns Infection Onset Date Last Indicated Resolved Time R/O COVID-19 08/18/2020 08/18/2020 08/18/2020 5:52 PM CDT documented as of this encounter Care Teams Grain Drier Operator Relationship Specialty Start Date End Date Gary Guardado MD [address] [address] PCP - General Family Practice 12/26/16 documented as of this encounter
--- OUTSIDE RECORDS SUMMARY | 2025-03-22 00:16 | XMS_ITS | Encounter Summary ---
Author Organization [facility] Address [address] [place] [address] Care Team Providers Care Critical Systems Technician Name Role Phone Gary Guardado MD Primary Care Provider +1 -[phone] Reason for Visit * Reason Comments Med Refill Encounter Details Date Type Department Care Team (Late st Contact Info) Description 03/18/[address] [facility] Family Medicine [address] [address] Gary Guardado MD [address] [address] Social History Tobacco Use Types Packs/Day Years [...] on file Legal Sex Female 2:49 PM OIL INSPECTOR Gender Identity Not on file Sexual Orientation Not on file documented as of this encounter Plan of Treatment Upcoming Encounters Date Type Department Care Team (Late st Contact Info) Description 07/23/2025 2:00 PM CDT Office Visit [facility] Medicine [place] [address] [address] Gary Guardado MD [address] [address] documented as of this encounter Visit Diagnoses Not on filedocumented in this encounter Care Teams Critical Systems Technician Relationship Specialty Start Date End Date Gary Guardado MD [address] [phone] PCP - General Family Practice 12/26/16 documented as of this encounter
--- OUTSIDE RECORDS SUMMARY | 2025-03-22 00:16 | XMS_ITS | Encounter Summary ---
Author Organization [facility] Address [address] [place] [address] Care Team Providers Care Bass String Winder Name Role Phone Gary Guardado MD Primary Care Provider +1 [phone] Encounter Details Date Type Department Care Team (Latest Contact Info) Description 01/23/2005 Outpatient Historical [facility] Family Medicine- [address] [place] [address] Francy Wade MD NO ADDRESS ON FILE HYPERTENSION NOS (Primary Dx); ANXIETY STATE NOS Social History Tobacco Use Types Packs/Day Years Used Date Smoking Tobacco: Never Assessed Comments Unknown Sex and Gender Information Value Date Recorded Sex Assigned at Not on file Legal Sex Female 4: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
--- OUTSIDE RECORDS SUMMARY | 2025-03-22 00:16 | XMS_ITS | Encounter Summary ---
Author Organization [facility] Address [address] [place] [address] Care Team Providers Care Councilperson Name Role Phone Gary Guardado MD Primary Care Provider +1 [phone] Encounter Details Date Type Department Care Team (Latest Contact Info) Description 08/14/2003 Outpatient Historical [facility] Family Medicine- [address] [address] [place] [address] Francy Wade MD NO ADDRESS ON FILE CELLULITIS OF LEG (Primary Dx) Social History Tobacco Use Types Packs/Day Years Used Date Smoking Tobacco: Never Assessed Comments Unknown Sex and Gender Information Value Date Recorded Sex Assigned at Not on file Legal 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 Female 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 Gender Identity Not on file Sexual Orientation Not on file documented as of this encounter Plan of Treatment Not on file documented as of this encounter Visit Diagnoses Diagnosis Cellulitis and abscess of leg, except foot- Primary documented in this encounter Additional Health Concerns Infection Onset Date Last Indicated Resolved Time R/O COVID-19 08/18/2020 08/18/2020 08/18/2020 5:52 PM CDT documented as of this encounter Care Teams Councilperson Relationship Specialty Start Date End Date Gary Guardado MD [address] [facility] [address] [place] [address] PCP - General Family Practice 12/26/16 documented as of this encounter
--- OUTSIDE RECORDS SUMMARY | 2025-03-22 00:16 | XMS_ITS | Encounter Summary ---
Author Organization [facility] Address [address] [place] [address] Care Team Providers Care Specialty Trimmer Name Role Phone Gary Guardado MD Primary Care Provider +1 [phone] Encounter Details Date Type Department Care Team (Latest Contact Info) Description 01/01/2007 Outpatient Historical [facility] Cardiology Ancillary Services-[place] [address] [place] [address] Jing Souza i, MD [address] [place] [id number] Other and Unspecified Angina Pectoris (Primary Dx); Coronary Atherosclerosis of [place] Coronary Artery; CVA Social History Tobacco Use Types Packs/Day Years Used Date Smoking Tobacco: Never Assessed Comments Unknown Sex and Gender Information Value Date Recorded Sex Assigned at Not on file Legal Sex Female 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 Gender Identity Not on file Sexual Orientation Not on file documented as of this encounter Plan of Treatment Not on file documented as of this encounter Procedures Procedure Name Priority Date/Time Associated Diagnosis Comments NM MYOCARD PERF IMAG SPECT MULT Routine 01/01/2007 1:30 PM CDT NM MYOCARD PERF IMAG SPECT MULT Routine 01/01/2007 1:30 PM CDT documented in this encounter Results * NM MYOCARD PERF IMAG SPECT MULT (01/01/2007 1:30 PM CDT) 01/01/2007 1:30 PM CDT Narrative INTERFACE SYSTEM - 01/01/2007 1:30 PM CDT ADENOSINE MYOVIEW STRESS TEST - 01/01/2007 INDICATION: History of shortness of breath on exertion, dyspnea, history of hypertension, hyperlipidemia. MEDICATIONS: Aspirin, Diovan HCT, multivitamins, Plavix. Patient underwent same-day rest/stress protocol. The patient received 10.5 mCi of Myoview at rest and 31.7 mCi of Myoview with stress images. Multiple computed tomographic images were obtained. Stress images were gated. FINDINGS: There are no areas of significantly reduced tracer uptake noted on stress and rest images. Gated SPECT imaging showed normal wall motion in all areas with an estimated ejection fraction of about 70%. Left ventricular cavity dimensions are within normal limits. Right ventricular cavity dimensions appear to be within normal limits. CONCLUSION: No evidence of ischemia was noted on Myoview images. Left ventricular ejection fraction was 70%. No evidence of wall motion abnormalities were noted. Please also review the results of adenosine stress test. Clinical correlation is recommended. Compared to Myoview results from 2003, no significant changes were found. jaw Dictated By: Jeronimo Souza Electronically Signed By: Ed Souza Date Signed: 01/02/07 JAW Procedure Note 03/21/2009 ADENOSINE MYOVIEW STRESS TEST - 01/01/2007 INDICATION: History of shortness of breath on exertion, dyspnea, history ofhypertension, hyperlipidemia. MEDICATIONS: Aspirin, Diovan HCT, multivitamins, Plavix. Patient underwent same-day rest/stress protocol. The patient diouqidg74.5 mCi of Myoview at rest and 31.7 mCi of Myoview with stress images. Multiple computed tomographicimages were obtained. Stress images were gated. FINDINGS: There are no areas of significantly reduced tracer uptake noted on stressand rest images. Gated SPECT imaging showed normal wall motion in all areas with an estimated ejectionfraction of about 70%. Left ventricular cavity dimensions are within normal limits. Right ventricularcavity dimensions appear to be within normal limits. CONCLUSION: No evidence of ischemia was noted on Myoview images. Left ventricularejection fraction was 70%. No evidence of wall motion abnormalities were noted. Please also review theresults of adenosine stress test. Clinical correlation is recommended. Compared to Myoview resultsfrom 2003, no significant changes were found. rona Dictated By: Jeronimo Souza Electronically Signed By: Ed Souza Date Signed: 01/02/07 RONA us Jan Hoover MD NM ORDERABLES Final Result INTERFACE SYSTEM Refer to clinic/hospital department * NM MYOCARD PERF IMAG SPECT MULT (01/01/2007 1:30 PM CDT) 01/01/2007 1:30 PM CDT Narrative INTERFACE SYSTEM - 01/01/2007 1:30 PM CDT ADENOSINE STRESS PORTION OF AN ADENOSINE / MYOVIEW MYOCARDIAL PERFUSION IMAGING / GATED SPECT STUDY: Pretest EKG showed sinus bradycardia at 56 beats per minute. Otherwise unremarkable. Pretest blood pressure was 158/88 mmHg. The patient received a continuous intravenous infusion of 43.5 mg of adenosine over 4 minutes. During the adenosine infusion, the patient performed low-level treadmill exercise at a speed of 1.2 miles per hour and 0% grade. About usp through the adenosine infusion, the patient was injected with 31.7 mCi of Myoview. During the adenosine infusion, the patient developed headache, neck pain, and shortness of breath. The patient did not have chest pain. These symptoms resolved after adenosine infusion was completed. At the end of adenosine infusion, heart rate was 92beats per minute, and blood pressure was 132/70 mmHg. Both the heart rate and blood pressure responses to adenosine infusion were normal. RESULTS: 1. Electrocardiographic: No ischemic ST segment changes or arrhythmias occurred. IMPRESSION: 1. Overall, the test is negative for development of diagnostic criteria for adenosine-induced myocardial ischemia by electrocardiographic and clinical criteria. 2. Normal heart rate and blood pressure responses to adenosine infusion. 3. The results of the Myoview myocardial perfusion imaging and gated SPECT study done in conjunction with this test will be provided in a separate report. ama / Dictated By: Alen Jennings M.D. Electronically Signed By: Alen Jennings M.D.MD Date Signed: 01/02/07 AMA Procedure Note 03/21/2009 ADENOSINE STRESS PORTION OF AN ADENOSINE / MYOVIEW MYOCARDIAL PERFUSIONIMAGING / GATED SPECT STUDY: Pretest EKG showed sinus bradycardia at 56 beats per minute. Otherwiseunremarkable. Pretest blood pressure was 158/88 mmHg. The patient received a continuous intravenous infusion of 43.5 mg ofadenosine over 4 minutes. During the adenosine infusion, the patient performed low-level treadmill exerciseat a speed of 1.2 miles per hour and 0% grade. About usp through the adenosine infusion, thepatient was injected with 31.7 mCi of Myoview. During the adenosine infusion, the patient developedheadache, neck pain, and shortness of breath. The patient did not have chest pain. These symptoms resolvedafter adenosine infusion was completed. At the end of adenosine infusion, heart rate was 92beats perminute, and blood pressure was 132/70 mmHg. Both the heart rate and blood pressure responses toadenosine infusion were normal. RESULTS: 1. Electrocardiographic: No ischemic ST segment changes or arrhythmias occurred. IMPRESSION: 1. Overall, the test is negative for development of diagnostic criteriafor adenosine-induced myocardial ischemia by electrocardiographic and clinical criteria. 2. Normal heart rate and blood pressure responses to adenosine infusion. 3. The results of the Myoview myocardial perfusion imaging and gatedSPECT study done in conjunction with this test will be provided in a separate report. ama / Dictated By: Alen Jennings M.D. Electronically Signed By: Arben Jennings M.D. Date Signed: 01/02/07 AMA us Jan Hoover MD NM ORDERABLES Final Result INTERFACE SYSTEM Refer to clinic/hospital department documented in this encounter Visit Diagnoses Diagnosis Other and unspecified angina pectoris- Primary Coronary atherosclerosis of [place] coronary artery CVA Unspecified cerebral artery occlusion with cerebral infarction documented in this encounter Additional Health Concerns Infection Onset Date Last Indicated Resolved Time R/O COVID-19 08/18/2020 08/18/2020 08/18/2020 5:52 PM CDT documented as of this encounter Care Teams Specialty Trimmer Relationship Specialty Start Date End Date Gary Guardado MD [address] [address] PCP - General Family Practice 12/26/16 documented as of this encounter
--- OUTSIDE RECORDS SUMMARY | 2025-03-22 00:16 | XMS_ITS | Encounter Summary ---
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
--- OUTSIDE RECORDS SUMMARY | 2025-03-22 00:16 | XMS_ITS | Encounter Summary ---
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
--- OUTSIDE RECORDS SUMMARY | 2025-03-22 00:16 | XMS_ITS | Encounter Summary ---
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 Gender Identity Not on file Sexual Orientation Not on file documented as of this encounter Plan of Treatment Not on file documented as of this encounter Visit Diagnoses Diagnosis Family history of stroke (cerebrovascular)- Primary documented in this encounter Additional Health Concerns Infection Onset Date Last Indicated Resolved Time R/O COVID-19 08/18/2020 08/18/2020 08/18/2020 5:52 PM CDT documented as of this encounter Care Teams Center Aisle Cashier Relationship Specialty Start Date End Date Gary Guardado MD [address] [facility] [address] [place] [phone] PCP - General Family Practice 12/26/16 documented as of this encounter
--- OUTSIDE RECORDS SUMMARY | 2025-03-22 00:16 | XMS_ITS | Encounter Summary ---
Author Organization [facility] Address [address] [place] [address] Care Team Providers Care Jack Of All Trades Name Role Phone Gary Guardado MD Primary Care Provider +1 [phone] Encounter Details Date Type Department Care Team (Latest Contact Info) Description 05/12/2003 Outpatient Historical [facility] Family Medicine- [place] [address] [place] [address] Jake Wiley DO NO ADDRESS ON FILE CARDIOVAS SYS SYMP NEC (Primary Dx) Social History Tobacco Use Types Packs/Day Years Used Date Smoking Tobacco: Never Assessed Comments Unknown Sex and Gender Information Value Date Recorded Sex Assigned at Not on file 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 Gender Identity Not on file Sexual Orientation Not on file documented as of this encounter Plan of Treatment Not on file documented as of this encounter Visit Diagnoses Diagnosis Other symptoms involving cardiovascular system- Primary documented in this encounter Additional Health Concerns Infection Onset Date Last Indicated Resolved Time R/O COVID-19 08/18/2020 08/18/2020 08/18/2020 5:52 PM CDT documented as of this encounter Care Teams Jack Of All Trades Relationship Specialty Start Date End Date Gary Guardado MD [address] [phone] PCP - General Family Practice 12/26/16 documented as of this encounter
--- OUTSIDE RECORDS SUMMARY | 2025-03-22 00:16 | XMS_ITS | Encounter Summary ---
Author Organization [facility] Address [address] [place] [address] Care Team Providers Care Web Knitter Name Role Phone Gary Guardado MD Primary Care Provider +1 [phone] Encounter Details Date Type Department Care Team (Late st Contact Info) Description 07/19/2012 Ancillary Orders [facility] Cardiology- [place] [address] [place] [address] Jan Hoover MD [address] [facility] [address] [place] [address] Claudication (Primary Dx) Social History Tobacco Use Types Packs/Day Years Used Date Smoking Tobacco: Every Day Cigarettes 1 48 Smokeless Tobacco: Never Alcohol Use Standard Drinks/Week Comments No 0 (1 standard drink = 0.6 oz pur e alcohol) Comments No Sex and Gender Information Value Date Recorded Sex Assigned at Not on file Legal Sex Female 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 Gender Identity Not on file Sexual Orientation Not on file Occupation Industry Job Start Date Job End Date Not on file Not on file Not on file Not on file Not on file Not on file Not on file Not on file documented as of this encounter Plan of Treatment Not on file documented as of this encounter Visit Diagnoses Diagnosis Claudication- Primary Peripheral vascular disease, unspecified documented in this encounter Additional Health Concerns Infection Onset Date Last Indicated Resolved Time R/O COVID-19 08/18/2020 08/18/202008/1808/18/2020 5:52 PM CDT documented as of this encounter Care Teams Web Knitter Relationship Specialty Start Date End Date Gary Guardado MD [address] [address] PCP - General Family Practice 12/26/16 documented as of this encounter
--- OUTSIDE RECORDS SUMMARY | 2025-03-22 00:16 | XMS_ITS | Encounter Summary ---
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
--- OUTSIDE RECORDS SUMMARY | 2025-03-22 00:16 | XMS_ITS | Encounter Summary ---
Author Organization [facility] Address [address] [place] [address] Care Team Providers Care Herb Doctor Name Role Phone Gary Guardado MD Primary Care Provider +1 -[phone] Encounter Details Date Type Department Care Team (Latest Contact Info) Description 01/05/2004 Outpatient Historical [facility] General and Trauma Surgery-[address] [place] [address] Rom Obrien S, DO [address], [place] [address] CAROTID ART OCCL-NO INFARCT (Primary Dx) Social History Tobacco Use Types Packs/Day Years Used Date Smoking Tobacco: Never Assessed Comments Unknown Sex and Gender Information Value Date Recorded Sex Assigned at Not on file Legal 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
--- OUTSIDE RECORDS SUMMARY | 2025-03-22 00:16 | XMS_ITS | Encounter Summary ---
Author Organization [facility] Address [address] [place] [address] Care Team Providers Care Liaison Planner Name Role Phone Gary Guardado MD Primary Care Provider +1 -[phone] Encounter Details Date Type Department Care Team (Latest Contact Info) Description 05/13/2003 Outpatient Historical [facility] Cardiovascular Services [address] [place] [address] [place] [address] Khadar Humphrey PA NO ADDRESS ON FILE DIZZINESS AND GIDDINESS (Primary Dx) Social History Tobacco Use Types Packs/Day Years Used Date Smoking Tobacco: Never Assessed Comments Unknown Sex and Gender Information Value Date Recorded Sex Assigned at Not on file Legal Sex Female 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 Gender Identity Not on file Sexual Orientation Not on file documented as of this encounter Plan of Treatment Not on file documented as of this encounter Visit Diagnoses Diagnosis Dizziness and giddiness- Primary documented in this encounter Additional Health Concerns Infection Onset Date Last Indicated Resolved Time R/O COVID-19 08/18/2020 08/18/2020 08/18/2020 5:52 PM CDT documented as of this encounter Care Teams Liaison Planner Relationship Specialty Start Date End Date Gary Guardado MD [address] [facility] [address] [place] [phone] PCP - General Family Practice 12/26/16 documented as of this encounter
--- OUTSIDE RECORDS SUMMARY | 2025-03-22 00:16 | XMS_ITS | Encounter Summary ---
Author Organization [facility] Address [address] [place] [address] Care Team Providers Care Roto Mixer Operator Name Role Phone Gary Guardado MD Primary Care Provider +1 [phone] Encounter Details Date Type Department Care Team (Latest Contact Info) Description 11/02/2006 Outpatient Historical [facility] Family Medicine- [facility] [address] [place] [address] Francy Wade MD NO ADDRESS ON FILE Unspecified Peripheral Vascular Disease (Primary Dx); Lumbago; Neoplasm of Uncertain Behavior of Skin; Unspecified Essential Hypertension Social History Tobacco Use Types Packs/Day Years Used Date Smoking Tobacco: Never Assessed Comments Unknown Sex and Gender Information Value Date Recorded Sex Assigned at Not on file Legal Sex 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 Gender Identity Not on file Sexual Orientation Not on file documented as of this encounter Plan of Treatment Not on file documented as of this encounter Visit Diagnoses Diagnosis Peripheral vascular disease, unspecified- Primary Lumbago Neoplasm of uncertain behavior of skin Unspecified essential hypertension documented in this encounter Additional Health Concerns Infection Onset Date Last Indicated Resolved Time R/O COVID-19 08/18/2020 08/18/2020 08/18/2020 5:52 PM CDT documented as of this encounter Care Teams Roto Mixer Operator Relationship Specialty Start Date End Date Gary Guardado MD [address] [facility] [address] [place] [phone] PCP - General Family Practice 12/26/16 documented as of this encounter
--- OUTSIDE RECORDS SUMMARY | 2025-03-22 00:16 | XMS_ITS | Encounter Summary ---
Author Organization [facility] Address [address] [place] [address] Care Team Providers Care Search Marketing Analyst Name Role Phone Gary Guardado MD Primary Care Provider +1 [phone] Encounter Details Date Type Department Care Team (Latest Contact Info) Description 01/14/2002 Outpatient Historical [facility] Prieto Anderson MD [address] [place] [address] HYPERTENSION NOS (Primary Dx); DEPRESSIVE DISORDER NEC Social History Tobacco Use Types Packs/Day Years Used Date Smoking Tobacco: Never Assessed Comments Unknown Sex and Gender Information Value Date Recorded Sex Assigned at Not on file Legal Sex Female 4:26 AM TEST LEAD Gender Identity Not on file Sexual Orientation Not on file documented as of this encounter Plan of Treatment Not on file documented as of this encounter Visit Diagnoses Diagnosis Unspecified essential hypertension- Primary Depressive disorder, not elsewhere classified documented in this encounter Additional Health Concerns Infection Onset Date Last Indicated Resolved Time R/O COVID-19 08/18/2020 08/18/2020 08/18/2020 5:52 PM CDT documented as of this encounter Care Teams Search Marketing Analyst Relationship Specialty Start Date End Date Gary Guardado MD [address] [facility] [address] [place] [phone] PCP - General Family Practice 12/26/16 documented as of this encounter
--- OUTSIDE RECORDS SUMMARY | 2025-03-22 00:16 | XMS_ITS | Encounter Summary ---
Author Organization [facility] Address [address] [place] [address] Care Team Providers Care Wholesale Parts Salesperson Name Role Phone Gary Guardado MD Primary Care Provider +1 [phone] Encounter Details Date Type Department Care Team (Latest Contact Info) Description 08/10/2003 Outpatient Historical [facility] Family Medicine- [address] [place] [address] Jake Wiley, NO ADDRESS ON FILE CELLULITIS OF LEG (Primary Dx) Social History Tobacco Use Types Packs/Day Years Used Date Smoking Tobacco: Never Assessed Comments Unknown Sex and Gender Information Value Date Recorded Sex Assigned at Not on file Legal Sex Female 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
--- OUTSIDE RECORDS SUMMARY | 2025-03-22 00:16 | XMS_ITS | Encounter Summary ---
Author Organization [facility] Address [address] [place] [address] Care Team Providers Care Farm Owner Operator Name Role Phone Gary Guardado MD Primary Care Provider +1 [phone] Encounter Details Date Type Department Care Team (Latest Contact Info) Description 05/20/2003 Outpatient Historical [facility] General and Trauma Surgery-[address] [address] Maikel Garcia MD [address] [place] [address] [address] [place] [address] Respiratory abnormality (Primary Dx); COMPLIC HYPERTENSION; VISUAL DISTURBANCES NEC; CAROTID ART OCCL-NO INFARCT Social History Tobacco Use Types Packs/Day Years Used Date Smoking Tobacco: Never Assessed Comments Unknown Sex and Gender Information Value Date Recorded Sex Assigned at Not on file Legal Sex Female 4:26 AM HEAD OF SCIENCE Gender Identity Not on file Sexual Orientation Not on file documented as of this encounter Plan of Treatment Not on file documented as of this encounter Visit Diagnoses Diagnosis Respiratory abnormality- Primary Respiratory abnormality, unspecified Complications affecting other specified body systems, hypertension Other specified visual disturbances Occlusion and stenosis of carotid artery without mention of cerebral infarction documented in this encounter Additional Health Concerns Infection Onset Date Last Indicated Resolved Time R/O COVID-19 08/18/2020 08/18/2020 08/18/2020 5:52 PM CDT documented as of this encounter Care Teams Farm Owner Operator Relationship Specialty Start Date End Date Gary Guardado MD [address] [address] PCP - General Family Practice 12/26/16 documented as of this encounter
--- OUTSIDE RECORDS SUMMARY | 2025-03-22 00:16 | XMS_ITS | Encounter Summary ---
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
--- OUTSIDE RECORDS SUMMARY | 2025-03-22 00:17 | XMS_ITS | Encounter Summary ---
Author Organization [facility] Address [address] [place] [address] Care Team Providers Care Signal Engineer Name Role Phone Gary Guardado MD Primary Care Provider +1 [phone] Encounter Details Date Type Department Care Team (Latest Contact Info) Description 04/09/2001 Outpatient Historical [facility] Prieto Anderson MD [address] [place] [address] ANAL FISSURE (Primary Dx); ANXIETY STATE NOS; HYPERTENSION NOS Social History Tobacco Use Types Packs/Day Years Used Date Smoking Tobacco: Never Assessed Comments Unknown Sex and Gender Information Value Date Recorded Sex Assigned at Not on file 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 Gender Identity Not on file Sexual Orientation Not on file documented as of this encounter Plan of Treatment Not on file documented as of this encounter Visit Diagnoses Diagnosis Anal fissure- Primary Anxiety state, unspecified Unspecified essential hypertension documented in this encounter Additional Health Concerns Infection Onset Date Last Indicated Resolved Time R/O COVID-19 08/18/2020 08/18/2020 08/18/2020 5:52 PM CDT documented as of this encounter Care Teams Signal Engineer Relationship Specialty Start Date End Date Gary Guardado MD [address] [facility] [address] [place] [phone] PCP - General Family Practice 12/26/16 documented as of this encounter
--- OUTSIDE RECORDS SUMMARY | 2025-03-22 00:17 | XMS_ITS | Encounter Summary ---
Author Organization [facility] Address [address] [place] [address] Care Team Providers Care Parimutuel Cashier Name Role Phone Gary Guardado MD Primary Care Provider +1 [phone] Encounter Details Date Type Department Care Team (Late st Contact Info) Description 09/18/2017 Ancillary Orders [facility] External Department [address] [place] [address] Wilver Ruiz MD NO ADDRESS ON FILE Social History Tobacco Use Types Packs/Day Years Used Date Smoking Tobacco: Every Day Cigarettes 1.5 55 Smokeless Tobacco: Never Comments:Pt. states she smok e 1.5 ppd. 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
--- OUTSIDE RECORDS SUMMARY | 2025-03-22 00:17 | XMS_ITS | Encounter Summary ---
Author Organization [facility] Address [address] [place] [address] Care Team Providers Care Probation Counselor Name Role Phone Gary Guardado MD Primary Care Provider +1 [phone] Encounter Details Date Type Department Care Team (Latest Contact Info) Description 01/30/2001 Outpatient Historical [facility] Prieto Anderson MD [address] [place] [address] Unspecified essential hypertension (Primary Dx); Acute tonsillitis; Tobacco use disorder; Anxiety state, unspecified Social History Tobacco Use Types Packs/Day Years Used Date Smoking Tobacco: Never Assessed Comments Unknown Sex and Gender Information Value Date Recorded Sex Assigned at Not on file 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 Gender Identity Not on file Sexual Orientation Not on file documented as of this encounter Plan of Treatment Not on file documented as of this encounter Visit Diagnoses Diagnosis Unspecified essential hypertension- Primary Acute tonsillitis Tobacco use disorder Anxiety state, unspecified documented in this encounter Additional Health Concerns Infection Onset Date Last Indicated Resolved Time R/O COVID-19 08/18/2020 08/18/2020 08/18/2020 5:52 PM CDT documented as of this encounter Care Teams Probation Counselor Relationship Specialty Start Date End Date Gary Guardado MD [address] [phone] PCP - General Family Practice 12/26/16 documented as of this encounter
--- OUTSIDE RECORDS SUMMARY | 2025-03-22 00:17 | XMS_ITS | Clinical Summary ---
Author Organization [facility] Address [address] [facility] [address] Care Team Providers Care Toy Trains And Accessories Salesperson Name Role Phone Gary Guardado MD Primary Care Provider +1 [phone] Allergies Active Allergy Reactions Criticality Noted Date Comments Cephalexin Rash,Itching Low 11/02/2014 Minocycline Rash Medium 02/07/2008 Penicillins Rash Low 02/07/2008 Medications ASPIRIN EC PO Take 325 mg by mouth daily. Active Nebulizer & Compressor For [facility] Mis Cathy by [facility].(Non-Drug; Combo Route) route. 1 Device 0 06/03/19 10 Active walker with wheels and seatIndications:Pa nlobular emphysema (CMS/HCC),Congesti ve heart failure, unspecified HF chronicity, unspecified heart failure type (CMS/HCC),PAD (peripheral artery disease),Supplemen skip oxygen dependent,History of fall Face to Face completed within 6 months: yes Length of Need: 99 months. 1 Each 08/23/19 18 Active multivit-min/iron/ folic/lutein (CENTRUM SILVER WOMEN ORAL) Take by mouth daily. Active denosumab (PROLIA) 60 mg/mL Syringe Inject 60 mg by subcutaneous injection Every twentysix weeks. Active ipratropium-albute rol (DUONEB) 0.5 mg-3 mg(2.5 mg base)/3 mL Solution for Nebulization NEBULIZE 1 VIAL EVERY 4 HOURS WHILE AWAKE 180 mL 2 02/18/20 19 Active fluticasone furoate-vilanteroL (Breo Ellipta) 200-25 mcg/dose Disk with Device INHALE 1 PUFF INTO LUNGS DAILY 1 Each 3 07/11/19 20 Active busPIRone (BUSPAR) 5 mg tabletIndications: Anxiety state Take 1 Tablet (5 mg) by mouth 2 times daily as needed for Other (See Comment). 30 Tablet 09/30/19 20 Active cetirizine (ZyrTEC) 10 mg tablet TAKE ONE TABLET BY MOUTH DAILY 90 Tablet 3 02/02/20 20 Active famotidine (PEPCID) 40 mg tablet TAKE ONE TABLET BY MOUTH DAILY 90 Tablet 3 02/02/20 20 Active lovastatin (MEVACOR) 20 mg tabletIndications: Mixed hyperlipidemia TAKE ONE TABLET BY MOUTH DAILY WITH SUPPER 90 Tablet 3 07/10/19 21 Active overnight pulse oximetryIndication s:Panlobular emphysema (CMS/HCC) Overnight pulse oximetry: One time overnight pulse oximetry test on room air 1 Each 07/10/19 21 Active montelukast (SINGULAIR) 10 mg tablet TAKE ONE TABLET BY MOUTH EVERY DAY AT BEDTIME 90 Tablet 08/06/19 21 Active amLODIPine (NORVASC) 5 mg tabletIndications: Essential (primary) hypertension TAKE ONE TABLET BY MOUTH ONCE EACH DAY 90 Tablet 08/24/19 21 Active clonazePAM (KlonoPIN) 0.5 mg TabletIndications: Orthostatic tremor Take 1 Tablet (0.5 mg) by mouth daily at bedtime. 30 Tablet 5 08/26/19 21 Active isosorbide mononitrate (IMDUR) 30 mg Extended Release 24 hour tabletIndications: Chronic congestive heart failure, unspecified heart failure type (CMS/HCC) TAKE ONE TABLET BY MOUTH EVERY DAY EARLY IN THE MORNING 90 Tablet 3 09/21/19 21 Active clopidogreL (PLAVIX) 75 mg Tablet TAKE ONE TABLET BY MOUTH DAILY 90 Tablet 3 09/21/19 21 Active metoprolol tartrate (LOPRESSOR) 50 mg tabletIndications: Chronic congestive heart failure, unspecified heart failure type (CMS/HCC),Essentia l hypertension TAKE ONE TABLET BY MOUTH TWICE DAILY 180 Tablet 1 10/20/19 21 Active citalopram (CeleXA) 20 mg tabletIndications: Depression with anxiety TAKE ONE TABLET BY MOUTH EVERY DAY AT BEDTIME 90 Tablet 10/20/19 21 Active multivitamin (DAILY-MELANIA) tablet Take 1 Tablet by mouth daily. Active ketoconazole (NIZORAL) 2 % Cream APPLY TO THE AFFECTED AREA(S) DAILY 60 Gram 1 10/23/19 21 Active Active Problems Problem Noted Date Diagnosed Date Cervical spondylosis with myelopathy 05/27/2020 Orthostatic tremor 05/27/2020 Supplemental oxygen dependent 08/22/2017 Asymptomatic bilateral carotid artery stenosis 1 Tobacco use 02/02/2015 Stage 3 chronic kidney disease 11/29/2012 PAD (peripheral artery disease) 07/09/2012 Intertrigo 02/25/2011 GERD (gastroesophageal reflux disease) 1 Sinus bradycardia 03/04/2010 History of CVA (cerebrovascular accident) 2009 Personal history of carotid stenosis 06/14/2009 Hyperlipidemia 05/22/2008 Depression with anxiety 05/22/2008 COPD (chronic obstructive pulmonary disease) Hypertension 02/07/2008 CHF (congestive heart failure) Resolved Problems Problem Noted Date Diagnosed Date Resolved Date Chest pain 03/04/2010 11/16/2013 Vertigo 11/12/2009 10/21/2014 Family History Medical History Relation Name Comments Diabetes Brother 1 Diabetes Father Unknown Maternal Grandfather Unknown Maternal Grandmother Diabetes Other uncles Unknown Paternal Grandfather Unknown Paternal Grandmother Breast Cancer Neg Hx Colon Cancer Neg Hx Relation Name Status Comments Brother 1 Alive Brother 2 Father Maternal Grandfather Maternal Grandmother Mother Other Paternal Grandfather Paternal Grandmother Sister Social History Tobacco Use Types Packs/Day Years Used Date Smoking Tobacco: Every Day Cigarettes 2 60 Smokeless Tobacco: Never Tobacco Cessation:Ready to Q uit: No; Counseling Given: Yes Alcohol Use Standard Drinks/Week Comments No 0 (1 standard drink = 0.6 oz pur e alcohol) Social Connections Answer Date Recorded In a typical week, how many times do you talk on the phone with family, friends, or neighbors? Twice a week 12/23/19 How often do you get togethe r with friends or relatives? Once a week 12/23/2019 How often do you attend [facility] or lutheran services? 1 to 4 times per year 12/23/2019 Do you belong to any clubs o r organizations such as mormon groups, unions, fraternal or athletic groups, or school groups? No 12/23/2019 How often do you attend meet ings of the clubs or organizations you belong to? Never 12/23/2019 Are you , , di vorced, , never , or living with a partner? 12/23/2019 Financial Resource Strain Answer Date R ecorded How hard is it for you to pa y for the very basics like food, housing, medical care, and heating? Not hard at all 12/23/2019 Food Insecurity Answer Date Recorded Within the past 12 months, y ou worried that your food would run out before you got the money to buy more. Never true Within the past 12 months, t he food you bought just didn't last and you didn't have money to get more. Sometimes true Transportation Needs Answer Date Record ed In the past 12 months, has l ack of transportation kept you from medical appointments or from getting medications? No 11/29 In the past 12 months, has l ack of transportation kept you from meetings, work, or from getting things needed for daily living? No 12/23/2019 Education Answer Date Recorded What is the highest level of school you have completed or the highest degree you have received? 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 Gender Identity Not on file Sexual Orientation Not on file Occupation Industry Job Start Date Job End Date Not on file Not on file Not on file Not on file Not on file Not on file Not on file Not on file Last Filed Vital Signs Vital Sign Reading Time Taken Comments Blood Pressure 130/58 10/22/2020 1:39 PM CDT Pulse 56 10/22/2020 1:39 PM CDT Temperature 36.4 C (97.5 F) 10/22/2020 1:39 PM CDT Respiratory Rate 93 10/22/2020 1:39 PM CDT Oxygen Saturation 96% 09/02/2020 11:37 AM CDT Inhaled Oxygen Concentration - - Weight 66.3 kg (146 lb 3.2 oz) 10/22/2020 1:39 P M CDT Height 162.6 cm (5' 4 ) 10/22/2020 1:39 PM CDT Body Mass Index 25.1 10/22/2020 1:39 PM CDT Plan of Treatment Health Maintenance Due Date Last Done Comments DTAP/TDAP/TD VACCINES (1 - Tdap) 1964 PNEUMOCOCCAL VACCINE 50+ YEA RS (1 of 2 - PCV) 1964 ZOSTER VACCINE (1 of 2) 08/28/1995 RSV VACCINE (60+ or ) (1 - 1-dose 75+ series) 2020 Traditional Medicare (O) A nnual Wellness Visit 12/23/2020 12/23/2019, 08/16/2017, 11/02/2014 OSTEOPOROSIS SCREENING 06/24/2023 06/24/2018 INFLUENZA VACCINE (#1) 2024 05/27/2020, 2017 COLORECTAL SCREENING Discontinued 03/18/2007 Colorectal Cancer Screening Discontinued FIT-DNA Q 3 years Discontinued FIT/FOBT Q 1 year Discontinued Flex Sig/CT Colonography Q 5 years Discontinued Medical Devices Implanted Type Area Snack Bar Attendant Device Identifier Shelf Expiration Date Model / Serial / Lot Lens Io Bi-Aspheric Softechd+21.25 - [id number] Implanted:Qty: 1 on 11/11/2014 by Gonzalo Manzano MD at [facility] Eye Right: Eye [employer] 04/13/2018 [id number]+21 .25 / [id number] / Procedures Procedure Name Priority Date/Time Associated Diagnosis Comments XR DEXA BONE DENSITY AXIAL 1 OR MORE SITES Routine 06/24/2018 2:33 PM POLITICAL SCIENTIST Postmenopausal from Last 3 Months or Most Recently Relevant to Health Maintenance Results * XR DEXA BONE DENSITY AXIAL 1 OR MORE SITES (06/24/2018 2:33 PM POLITICAL SCIENTIST) Anatomical Region Laterality Modality Digital Radiogra phy 06/24/2018 2:33 PM POLITICAL SCIENTIST Impressions 06/24/2018 2:41 PM POLITICAL SCIENTIST IMPRESSION: Abnormal examination Low bone density/osteopenia is present [...] as clinically needed. Narrative 06/24/2018 2:41 PM POLITICAL SCIENTIST DEXA Evaluation of the Lumbar Spine and [...] 0.9 Procedure Note Jan Paz MD - 06/24/2018 DEXA Evaluation of the Lumbar Spine and [...] 0.852 Adult T-score: -0.7 Adult Z-score: 0.9 IMPRESSION: Abnormal examination Low bone density/osteopenia is present [...] Most Recently Relevant to Health Maintenance Insurance MEDICAID [place] MEDICARE PART A AND B Advance Directives For more information, please contact: [phone] * Full Code (Latest Code Status on File) Date Activated Date Inactivated Comments 03/04/2010 3:40 PM 03/05/2010 6:15 PM Care Teams Toy Trains And Accessories Salesperson Relationship Specialty Start Date End Date Gary Guardado MD [address] [address] PCP - General Family Practice 12/26/16
--- OUTSIDE RECORDS SUMMARY | 2025-03-22 00:17 | XMS_ITS | Encounter Summary ---
Author Organization [facility] Address [address] [place] [address] Care Team Providers Care Product Analyst Name Role Phone Gary Guardado MD Primary Care Provider +1 [phone] Encounter Details Date Type Department Care Team (Latest Contact Info) Description 06/10/2001 Outpatient Historical [facility] Prieto Anderson MD [address] [place] [address] HYPERTENSION NOS (Primary Dx); GENERALIZED ANXIETY DIS Social History Tobacco Use Types Packs/Day Years Used Date Smoking Tobacco: Never Assessed Comments Unknown Sex and Gender Information Value Date Recorded Sex Assigned at Not on file 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 Gender Identity Not on file Sexual Orientation Not on file documented as of this encounter Plan of Treatment Not on file documented as of this encounter Visit Diagnoses Diagnosis Unspecified essential hypertension- Primary Generalized anxiety disorder documented in this encounter Additional Health Concerns Infection Onset Date Last Indicated Resolved Time R/O COVID-19 08/18/2020 08/18/2020 08/18/2020 5:52 PM CDT documented as of this encounter Care Teams Product Analyst Relationship Specialty Start Date End Date Gary Guardado MD [address] [phone] PCP - General Family Practice 12/26/16 documented as of this encounter
--- OUTSIDE RECORDS SUMMARY | 2025-03-22 00:17 | XMS_ITS | Encounter Summary ---
Author Organization [facility] Address [address] [place] [address] Care Team Providers Care Rn Dermatology Name Role Phone Gary Guardado MD Primary Care Provider [phone] Reason for Referral * Outpatient Services (Routine) - Closed Specialty Diagnoses / Procedures Referred By Ally gilbert Referred To Contact Radiology Diagnoses Chronic kidney disease (CKD), stage III (moderate) (CMS/HCC) Procedures US RENAL Wilver Ruiz MD [facility] [address] [place] [address] Phone: tel: fax: Referral ID Status Reason Start Date Expiration Date V isits Requested Visits Authorized [id number] Closed [facility] View CTS to Schedule (SGF) 09/18/2017 10/19/2018 1 1 Encounter Details Date Type Department Care Team (Latest Contact Info) Description 09/18/2017 Ancillary Orders [facility] Centralized Scheduling [address] [place] [address] Wilver Ruiz MD NO ADDRESS ON FILE Chronic kidney disease (CKD), stage III (moderate) (CMS/HCC) Social History Tobacco Use Types Packs/Day [...] on file Legal Sex Female 4:26 AM [employer] Gender Identity Not on file Sexual Orientation Not on file Occupation Industry Job Start Date Job End Date Not on file Not on file Not on file Not on file Not on file Not on file Not on file Not on file documented as of this encounter Plan of Treatment Not on file documented as of this encounter Results * US RENAL (09/26/2017 10:20 AM CDT) Anatomical Region Laterality Modality Abdomen Ultrasound 09/26/2017 10:2 0 AM CDT Impressions 09/26/2017 3:01 PM CDT IMPRESSION: Please see below. Renal Ultrasound: 09/26/2017 10:20 AM REASON FOR EXAM: Chronic kidney disease (CKD), stage III (moderate). COMPARISON: None Technique: Real-time bowers scale images of the kidneys was performed in transverse and longitudinal projections. Findings: Right Kidney: 8.6 cm in length. The renal parenchymal echogenicity is within normal limits. There is no evidence of mass, hydronephrosis, or calculus. Left Kidney: 8.9 cm in length. The renal parenchymal echogenicity is within normal limits. There is no evidence of mass, hydronephrosis, or calculus. Impression: Normal renal sonogram. Narrative Procedure Note Romulo Roach MD - 09/26/2017 IMPRESSION: Please see below. Renal Ultrasound: 09/26/2017 10:20 AM REASON FOR EXAM: Chronic kidney disease (CKD), stage III (moderate). COMPARISON: None Technique: Real-time bowers scale images of the kidneys was performed in transverse and longitudinal projections. Findings: Right Kidney: 8.6 cm in length. The renal parenchymal echogenicity is within normal limits. There is no evidence of mass, hydronephrosis, or calculus. Left Kidney: 8.9 cm in length. The renal parenchymal echogenicity is within normal limits. There is no evidence of mass, hydronephrosis, or calculus. Impression: Normal renal sonogram. us Wilver Ruiz MD US ORDERABLES Final Result documented in this encounter Visit Diagnoses Diagnosis Chronic kidney disease (CKD), stage III (moderate) (CMS/HCC) Chronic kidney disease, Stage III (moderate) Chronic kidney disease (CKD), stage III (moderate) (CMS/HCC) Chronic kidney disease, Stage III (moderate) documented in this encounter Additional Health Concerns Infection Onset Date Last Indicated Resolved Time R/O COVID-19 08/18/2020 08/18/2020 08/18/2020 5:52 PM CDT Assessment Noted Time PHQ-9 Depression Total Score: 1 08/23/19 18 1:00 PM CDT documented as of this encounter Care Teams Rn Dermatology Relationship Specialty Start Date End Date Gary Guardado MD [address] [address] PCP - General Family Practice 12/26/16 documented as of this encounter
--- OUTSIDE RECORDS SUMMARY | 2025-03-22 00:17 | XMS_ITS | Encounter Summary ---
Author Organization [facility] Address [address] [place] [address] Care Team Providers Care Consultant Dietitian Name Role Phone Gary Guardado MD Primary Care Provider [phone] Encounter Details Date Type Department Care Team (Late st Contact Info) Description 04/24/2024 Lab Requisition [facility] [place] [address] [place] [address] Social History Tobacco Use Types Packs/Day Years [...] on file Legal Sex Female 2:49 PM [employer] Gender Identity Not on file Sexual Orientation Not on file documented as of this encounter Plan of Treatment Upcoming Encounters Date Type Department Care Team (Late st Contact Info) Description 07/23/2025 2:00 PM CDT Office Visit [facility] [address] [address] Gary Guardado MD [address] [address] documented as of this encounter Visit Diagnoses Not on filedocumented in this encounter Care Teams Consultant Dietitian Relationship Specialty Start Date End Date Gary Guardado MD [address] [address] PCP - General Family Practice 12/26/16 documented as of this encounter
--- OUTSIDE RECORDS SUMMARY | 2025-03-22 00:17 | XMS_ITS | Encounter Summary ---
Author Organization [facility] Address [address] [place] [address] Care Team Providers Care Hop Farmer Name Role Phone Gary Guardado MD Primary Care Provider [phone] Encounter Details Date Type Department Care Team (Latest Contact Info) Description 09/27/2001 Outpatient Historical [facility] Prieto Anderson MD [address] [place] [address] HYPERTENSION NOS (Primary Dx); ALLERGIC RHINITIS NOS Social History Tobacco Use Types Packs/Day Years Used Date Smoking Tobacco: Never Assessed Comments Unknown Sex and Gender Information Value Date Recorded Sex Assigned at Not on file Legal Sex Female 4:26 AM [employer] Gender Identity Not on file Sexual Orientation Not on file documented as of this encounter Plan of Treatment Not on file documented as of this encounter Visit Diagnoses Diagnosis Unspecified essential hypertension- Primary Allergic rhinitis, cause unspecified documented in this encounter Additional Health Concerns Infection Onset Date Last Indicated Resolved Time R/O COVID-19 08/18/2020 08/18/2020 08/18/2020 5:52 PM CDT documented as of this encounter Care Teams Hop Farmer Relationship Specialty Start Date End Date Gary Guardado MD [address] [facility] [address] [place] [id number] PCP - General Family Practice 12/26/16 documented as of this encounter
--- NOTE | 2025-03-22 00:18 | ECG_ITS ---
[facility] Test Date: 2025-03-22 Pat Name: Maira Vernon Department: Room: Gender: Female Special Loan Officer: : 1945 Requested By: Jason Chen Order Number: [id number] Hipolito MD: Aureliano Saleh M.D. Measurements Intervals [place] Rate: 53 P: 75 AK: 148 QRS: 42 QRSD: 80 T: 71 QT: 455 QTc: 428 Interpretive Statements SINUS BRADYCARDIA Compared to ECG 01/06/2017 14:08:11 No significant changes Electronically Signed On 03-22-2025 17:37:43 TUBE MAKING MACHINE OPERATOR by Aureliano Saleh M.D. [email or web address]
--- NOTE | 2025-03-22 00:25 | CTR_ITS ---
PROCEDURE INFORMATION: Exam: CTA Head With Contrast, Arteriography Exam date and time: 03/22/2025 12:48 AM Age: 79 years old Clinical indication: Dizziness and giddiness and numbness; C/O RT facial numbness and dizziness with hypertension. History of CVA. ; Additional info: Prev CVA with new R facial numbness TECHNIQUE: Imaging protocol: Computed tomographic angiography of the head with contrast. Exam focused on the arteries. 3D rendering (Not supervised by radiologist): MIP and/or 3D reconstructed images were created by the technologist. Radiation optimization: All CT scans at this facility use at least one of these dose optimization techniques: automated exposure control; mA and/or kV adjustment per patient size (includes targeted exams where dose is matched to clinical indication); or iterative reconstruction. Contrast material: OMNI 350; Contrast volume: 100 ml; Contrast route: INTRAVENOUS (IV); COMPARISON: CT head wo con* [id number] 01/12/2022 3:16 PM RADIATION DOSE METRICS: Total DLP (mGy-cm): 872.14 FINDINGS: ANTERIOR CIRCULATION: Right internal carotid artery: Intracranial segment is patent with no significant stenosis. No aneurysm. Right middle cerebral artery: No occlusion or significant stenosis. No aneurysm. Right anterior cerebral artery: No occlusion or significant stenosis. No aneurysm. Left internal carotid artery: Intracranial segment is patent with no significant stenosis. No aneurysm. Left middle cerebral artery: No occlusion or significant stenosis. No aneurysm. Left anterior cerebral artery: No occlusion or significant stenosis. No aneurysm. POSTERIOR CIRCULATION: Right vertebral artery: No occlusion or significant stenosis. No aneurysm. Left vertebral artery: No occlusion or significant stenosis. No aneurysm. Basilar artery: No occlusion or significant stenosis. No aneurysm. Right posterior cerebral artery: No occlusion or significant stenosis. No aneurysm. Left posterior cerebral artery: No occlusion or significant stenosis. No aneurysm. Brain: No definite mass, mass effect, or midline shift. Cerebral ventricles: No ventriculomegaly. Bones/joints: Probable PICA termination of the left vertebral. Soft tissues: Unremarkable. PROCEDURE INFORMATION: Exam: CTA Neck With Contrast Exam date and time: 03/22/2025 12:48 AM Age: 79 years old Clinical indication: Dizziness and giddiness and numbness; C/O RT facial numbness and dizziness with hypertension. History of CVA. ; Additional info: Prev CVA with new R facial numbness TECHNIQUE: Imaging protocol: Computed tomographic angiography of the neck with contrast. Exam focused on the cervical segments of the vasculature. 3D rendering (Not supervised by radiologist): MIP and/or 3D reconstructed images were created by the technologist. Radiation optimization: All CT scans at this facility use at least one of these dose optimization techniques: automated exposure control; mA and/or kV adjustment per patient size (includes targeted exams where dose is matched to clinical indication); or iterative reconstruction. Contrast material: OMNI 350; Contrast volume: 100 ml; Contrast route: INTRAVENOUS (IV); COMPARISON: PT PET skull to thigh INIT [id number] 11/21/2024 11:36 AM RADIATION DOSE METRICS: Total DLP (mGy-cm): 872.14 FINDINGS: Right common carotid artery: No stenosis. No dissection or occlusion. Right internal carotid artery: No stenosis of the extracranial segment. No dissection or occlusion. Right external carotid artery: Moderate to severe narrowing of right external carotid following bifurcation. Left common carotid artery: No stenosis. No dissection or occlusion. Left internal carotid artery: Mild narrowing of left carotid bulb. Left external carotid artery: Mild narrowing of the left external carotid following bifurcation. Right vertebral artery: No stenosis. No dissection or occlusion. Left vertebral artery: No stenosis. No dissection or occlusion. Aorta: Aortic and carotid atherosclerosis. Soft tissues: Normal. No significant soft tissue swelling. Bones/joints: No acute fracture. Lungs: Emphysematous change of parenchyma. The presence of pulmonary emphysema on CT is an independent risk factor for lung cancer. In the absence of a history or active diagnosis of lung cancer, it is recommended that this patient with emphysema be evaluated for enrollment in a low dose CT lung cancer screening program. CT/CT angio headneck* [id number] IMPRESSION: No large vessel stenosis or occlusion. IMPRESSION: 1. Emphysematous change of parenchyma. The presence of pulmonary emphysema on CT is an independent risk factor for lung cancer. In the absence of a history or active diagnosis of lung cancer, it is recommended that this patient with emphysema be evaluated for enrollment in a low dose CT lung cancer screening program. origin of the left CREW PERSON. 2. No acute stenosis, occlusion, dissection. REFERENCES: NASCET CRITERIA. The degree of stenosis in the cervical segment of the internal carotid artery is based on NASCET criteria. Normal is no stenosis. Mild is less than 50% stenosis. Moderate is 50-69% stenosis. Severe is 70% to 99% stenosis. Total occlusion is no detectable patent lumen.
--- NOTE | 2025-03-22 00:26 | XRR_ITS ---
PROCEDURE INFORMATION: Exam: XR Chest Exam date and time: 03/22/2025 12:36 AM Age: 79 years old Clinical indication: Shortness of breath; Additional info: SOB TECHNIQUE: Imaging protocol: Radiologic exam of the chest. Views: 1 view. COMPARISON: CR XR ribs LT mn 3V w CXR1V [id number] 01/16/2022 3:53 PM FINDINGS: Lungs: Unremarkable. No consolidation. Pleural spaces: Unremarkable. No pleural effusion. No pneumothorax. Heart/Mediastinum: Unremarkable. No cardiomegaly. Bones/joints: Unremarkable. XR/XR chest 1V portable [id number] IMPRESSION: No acute findings.
[2025-03-22 00:35] VITALS: BP 123/55; PULSE 52; O2SAT 96
[2025-03-22 00:50] LABS: Hematocrit 35.8 % (36-47); Hemoglobin 11.60 g/dL (11.27-16.99); Mean Corpuscular HGB Conc 32.4 g/dL (30-55); Mean Corpuscular Hemoglobin 30.9 pg (27-33); Mean Corpuscular Volume 95.2 fl (85-98); Nucleated Red Blood Cells % 0 %; Platelet Count 192 10^3/cmm (157-399); Red Blood Count 3.76 10^6/uL (3.85-5.65); White Blood Count 7.28 10^3/uL (3.29-11.43)
[2025-03-22] MEDS: iohexol 350 mg/mL 500 mL Btl (per mL) IV (00:50)
[2025-03-22 01:00] LABS: Troponin(5th) Baseline 22 ng/L (0-10)
[2025-03-22 01:20] LABS: Alanine Aminotransferase 15 U/L (0-33); Albumin Level 4.3 g/dL (3.5-5.2); Alkaline Phosphatase 90 U/L (35-105); Anion Gap 13.9 (5-19); Aspartate Amino Transferase 15 U/L (0-32); Blood Urea Nitrogen 31 mg/dL (8-23); Calcium 9.3 mg/dL (8.5-10.5); Carbon Dioxide 29 mmol/L (22-29); Chloride 101 mmol/L (98-107); Globulin 1.8 g/dL (1.3-4.6); Glucose 106 mg/dL (65-115); Magnesium 2.2 mg/dL (1.7-2.3); NT Pro B Type Natriuretic Pept 2322 pg/mL (0-450); Osmolality Calculated 295 mOsm/kg (285-295); Potassium 4.9 mmol/L (3.5-5.1); Sodium 139 mmol/L (136-145); Total Protein 6.1 g/dL (6.6-8.7)
[2025-03-22 01:30] LABS: Slide Review Slide Review Perform
--- NOTE | 2025-03-22 02:35 | W.ED.GENADLT ---
HPI - General Adult General: Chief complaint: General Medical Stated complaint: HYPERTENSION Time Seen by Provider: 03/22/25 00:15 History of Present Illness: Patient is a 79 yofemale with a history of hypertension, prior stroke, and chronic respiratory issues who presents after experiencing elevated blood pressure at home (initially in the 190s, later in the 150s) after missing her usual dose of metoprolol. She reports feeling lightheaded and having trouble breathing, which she states is normal for her, but did notice a right sided facial swelling and numbness, which she has experienced once before yesterday, might have bitten her lip, but denies dental pain, swallowing difficulties or voice changes. She also notes chronic visual impairment, with worsening vision in both eyes since her stroke. She uses home oxygen at 2 liters but has not used it recently. She saw her primary care provider recently for hip pain, diagnosed as sciatica. Her BP improved with EMS after her nighttime Metoprolol, no CP, acute SOB, syncope with this. Associated symptoms: Reports dyspnea; Deny chest pain, headache(s), rash or palpitations Related Data Home Medications ?Medication ?Instructions ?Recorded ?Confirmed Unable to Assess 03/29/21 03/29/21 Allergies Allergy/AdvReac Type Severity Reaction Status Date / Time Penicillins Allergy Unknown Unverified 06/30/19 17:45 Review of Systems General: Reports: 10 or more systems reviewed and unremarkable except in HPI and below Const: Denies: fever(s) or chills Eyes: Denies: change in vision or eye discharge ENMT: Reports: sinus pain Card: Denies: chest pain, palpitations or swelling of feet/ankles Resp: Reports: dyspnea; Denies: productive cough GI: Denies: abdominal pain or diarrhea Musc: Denies: neck pain or back pain Skin/Breast: Denies: rash or jaundice Neuro: Denies: headache(s), numbness in extremities or weakness in extremities Iftikhar/Lymph: Denies: easy bruising or easy bleeding [facility] PFSH: Medical History (Updated 03/22/25 @ 02:34 by Jason Chen DO) HTN (hypertension) Occasional tremors Social History Smoking and tobacco/nicotine status: current every day tobacco/nicotine user Physical Exam Narrative: EXAM NARRATIVE: Patient overall well-appearing, afebrile and vital signs stable on arrival, no acute distress. head normocephalic, PERRL, moist mucous membranes, no appreciable swelling to either cheek mild redness on the right but no abscess, no cervical LAD. breathing comfortably on RA, saturating well, BL breath sounds but decreased in all lung cornell, no wheezes or crackles, able to speak in full sentences without getting SOB, no signs of respiratory distress. NSR with no murmurs, no leg swelling, 2+ pulses throughout, good cap refill. Abdomen soft, nontender, nondistended, no localizing or peritonitic signs, no overlying skin changes, no CVA ttp. 4 extremities without apparent deformity or injury. GCS 15, AAOx4, able to answer questions and follow commands appropriately, CN 2-12 intact, 5/5 motor and sensation in all 4 extremities, no pronator drift, finger to nose intact bilaterally. Normal mood and affect. Course Vital Signs: Vital signs: Vital Signs Pulse Rate 50 L 03/22/25 02:47 Respiratory Rate 14 03/22/25 02:47 Blood Pressure 143/60 03/22/25 02:47 Pulse Oximetry 96 03/22/25 02:47 Oxygen Delivery Me thod Room Air 03/22/25 00:15 Clincial Decision Support The following clinical decision support tools were used to aid in care of the patient HEART Score -> History: Slightly Suspicous, EKG: Normal, Age: 65 or more yrs, Risk Factors: >/=3 Risk Factors, Troponin: Baseline Trop 16-45 ng/L. Resulting HEART Score: 5. MDM - General Adult Medical Decision Making -ddx: HTN urgency vs emergency, TIA, CVA, facial trauma, cellulitis, trigeminal neuralgia, others -patient overall well appering, VSS, nontoxic, coming in originally for HTN that seemingly responded to her nightly home dose of Metoprolol, was seemingly asymtpomatic from this but daughter was concerned. also has a R sided facial numbness, with some reported swelling, no recalled trauma, no dental pain or signs of infection, also seemed to occur yesterday, has been >4.5h so outside of TNK window and with hx of CVA, will obtain CTA HN and cardiac monge, patient asymptomatic at this time and denying needing any meds. -EKG reassuring for new acute ischemic changes, troponins mildly elevated but negative delta at 22-20, has hx of CHF with BNP 2322 with probably elevated baseline trops, but never priors to compare to. CTAHN with no concerns for new vascular occlusion, bleed or other acute abnl. CXR with no infiltrates, effusions, vascular congestion, PTX. slightly elevated Cr for age at 1.5, but right at her baseline, BUN also mildly elevated with slightly decreased PO intake might be in setting of mild dehdyration as. well. her BP stayed in the 140s and required no meds to help lower. with patient still feeling well, any facial symptoms resolved, no development of other neuro sx or anything else and a reassuring ED monge, she was able to be discharged with good support at home and advised to fu with her PCP in a few days for reevaluation and further reconcilitation with her BP meds, dc'd in stable condition with strict return precautions given. Lab Data 03/22/25 00:34 03/22/25 00:34 Radiology Impressions Head/Neck CTA 03/22/25 00:25 IMPRESSION: No large vessel stenosis or occlusion. IMPRESSION: 1. Emphysematous change of parenchyma. The presence of pulmonary emphysema on CT is an independent risk factor for lung cancer. In the absence of a history or active diagnosis of lung cancer, it is recommended that this patient with emphysema be evaluated for enrollment in a low dose CT lung cancer screening program. 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 2. No acute stenosis, occlusion, dissection. REFERENCES: NASCET CRITERIA. The degree of stenosis in the cervical segment of the internal carotid artery is based on NASCET criteria. Normal is no stenosis. Mild is less than 50% stenosis. Moderate is 50-69% stenosis. Severe is 70% to 99% stenosis. Total occlusion is no detectable patent lumen. Chest X-Ray 03/22/25 00:26 IMPRESSION: No acute findings. Laboratory Results WBC 7.28 10^3/uL (3.29-11.43) 03/22/25 00:34 RBC 3.76 10^6/uL (3.85-5.65) L 03/22/25 00:34 Hgb 11.60 g/dL (11.27-16.99) 03/22/25 00:34 Hct 35.8 % (36-47) L 03/22/25 00:34 MCV 95.2 fl (85-98) 03/22/25 00:34 MCH 30.9 pg (27-33) 03/22/25 00:34 MCHC 32.4 g/dL (30-55) 03/22/25 00:34 RDW 12.8 % (12.1-15.1) 03/22/25 00:34 Plt Count 192 10^3/cmm (157-399) 03/22/25 00:34 MPV 10.5 fL (7.4-10.4) H 03/22/25 00:34 Neut % (Auto) 54.7 % 03/22/25 00:34 Lymph % (Auto) 36.3 % 03/22/25 00:34 Stearns % (Auto) 7.4 % 03/22/25 00:34 Eos % (Auto) 1.0 % 03/22/25 00:34 Baso % (Auto) 0.5 % 03/22/25 00:34 Neut # (Auto) 3.98 10^3/uL (1.8-7.7) 03/22/25 00:34 Lymph # (Auto) 2.6 10^3/uL (0.8-4.8) 03/22/25 00:34 Stearns # (Auto) 0.5 10^3/uL (0.2-0.9) 03/22/25 00:34 Eos # (Auto) 0.1 10^3/uL (0.0-0.8) 03/22/25 00:34 Baso # (Auto) 0.0 10^3/uL (0.0-0.1) 03/22/25 00:34 Nucleated RBC % (auto) 0 % 03/22/25 00:34 Nucleated RBCs # 0.0 /100WBC 03/22/25 00:34 Sodium 139 mmol/L (136-145) 03/22/25 00:34 Potassium 4.9 mmol/L (3.5-5.1) 03/22/25 00:34 Chloride 101 mmol/L (98-107) 03/22/25 00:34 Carbon Dioxide 29 mmol/L (22-29) 03/22/25 00:34 Anion Gap 13.9 (5-19) 03/22/25 00:34 BUN 31 mg/dL (8-23) H 03/22/25 00:34 Creatinine 1.5 mg/dL (0.5-0.9) H 03/22/25 00:34 GFR Calculation Not Reportable 03/22/25 00:34 Glucose 106 mg/dL (65-115) 03/22/25 00:34 Calculated Osmolality 295 mOsm/kg (285-295) 03/22/25 00:34 Calcium 9.3 mg/dL (8.5-10.5) 03/22/25 00:34 Phosphorus 4.4 mg/dL (2.5-4.5) 03/22/25 00:34 Magnesium 2.2 mg/dL (1.7-2.3) 03/22/25 00:34 Total Bilirubin 0.2 mg/dL (0.15-1.2) 03/22/25 00:34 AST 15 U/L (0-32) 03/22/25 00:34 ALT 15 U/L (0-33) 03/22/25 00:34 Alkaline Phosphatase 90 U/L (35-105) 03/22/25 00:34 Troponin T Baseline 22 ng/L (0-10) H 03/22/25 00:34 Troponin T 120 Minute 20.38 ng/L (0-10) H 03/22/25 02:16 Delta Troponin T -1.62 ABS# (0-10) L 03/22/25 02:16 C-Reactive Protein 3.0 mg/L (0.0-4.9) 03/22/25 00:34 NT-Pro-B Natriuret Pep 2322 pg/mL (0-450) H 03/22/25 00:34 Total Protein 6.1 g/dL (6.6-8.7) L 03/22/25 00:34 Albumin 4.3 g/dL (3.5-5.2) 03/22/25 00:34 Globulin 1.8 g/dL (1.3-4.6) 03/22/25 00:34 All radiology interpretation(s) finalized by discharge Discharge Plan Discharge Patient Disposition: Home Clinical Impression: Numbness and tingling of right face Condition: Stable Prescriptions: No Action Unable to Assess Discharge Orders: Discharge ED (Routine); Ordered 03/22/25 Ordered By: Jason Chen Discharge Diet: Usual diet Discharge Activity: Resume usual activity Patient Instructions: Opioid Safety, Pain Management, Patient Portal & Rosie Instructions Activity Restrictions/Additional Instructions: You were seen for your high blood pressure and facial tingling/numbness, your evaluated with a CT scan, EKG, chest x-ray and laboratory studies that were ultimately reassuring for no stroke, heart attack or other emergent conditions today. This is probably a superficial nerve pain causing this, you can trial ice packs/heating pads to the area and see if you get any relief otherwise further discuss nerve medications if this persists or worsens with your primary care provider at your next appointment. Return to the ED with facial droop, difficulty speaking, chest pains, difficulties breathing, any other emergent concerns. Print Language: Slovenian Coding Level of Care Code ED Director Of Category Management for Sindi Almonte
[2025-03-22 02:47] VITALS: BP 143/60; PULSE 50; RESP 14; O2SAT 96
[2025-03-22 02:49] LABS: Troponin 5 2HR 20.38 ng/L (0-10); Troponin 5 2HR Delta -1.62 ABS# (0-10)
== END 2025-03-22 02:48 | disposition home or self-care (01) ==
PROVIDERS: Emergency Provider Student in an Organized Health Care Education/Training Program
DX: R20.0 Anesthesia of skin (principal); R20.2 Paresthesia of skin; Z72.0 Tobacco use; I10 Essential (primary) hypertension
CPT/HCPCS: 36415; 70496; 70498; 71045; 80053; 83735; 83880; 84100; 84484; 85025; 86140; 93005; 99285